=== PATIENT | female | born 1935 | race Two or more races ===

== ENCOUNTER 2016-09-24 14:35 | Outpatient (CLI) | payer MEDICARE, OTHER ==
[2016-09-24 15:26] LABS: BASOPHILS % (AUTO) 0.3 % (0.0-2.0); DIFF TOTAL % 100 %; EOSINOPHILS # (AUTO) 0.4 /CMM (0.0-0.7); EOSINOPHILS % (AUTO) 3.4 % (0.0-6.0); HEMATOCRIT 47 % (33-45); HEMOGLOBIN 14.9 g/dL (11.5-14.8); LYMPHOCYTES % (AUTO) 18.6 % (20.0-44.0); MEAN CORPUSCULAR HEMOGLOBIN 29 PG (26.0-33.0); MEAN CORPUSCULAR HGB CONC 32 g/dl (31.0-36.0); MEAN CORPUSCULAR VOLUME 91 fL (82-100); MONOCYTES # (AUTO) 0.9 /CMM (0.1-1.30); MONOCYTES % (AUTO) 8.6 % (2.0-12.0); NEUTROPHILS # (AUTO) 7.3 /CMM (1.8-8.9); NEUTROPHILS % (AUTO) 69.1 % (43.0-81.0); PLATELET COUNT (AUTO) 245 /CMM (150-450); WHITE BLOOD COUNT (AUTO) 10.5 K/uL (4.3-11.0)
[2016-09-24 15:54] LABS: CALCIUM, SERUM 9.8 mg/dL (8.5-10.1); CREATININE 1.5 mg/dL (0.6-1.3); POTASSIUM 4.6 mmol/L (3.5-5.1)
[2016-09-24 15:55] LABS: ALBUMIN 3.7 g/dL (3.4-5.0); BILIRUBIN,TOTAL 0.9 mg/dL (0.2-1.0); TOTAL PROTEIN, SERUM 8.9 g/dL (6.4-8.2)
[2016-09-24 18:46] LABS: THYROID STIMULATING HORMONE 0.755 uIU/mL (0.358-3.74)
== END 2016-09-24 23:59 | disposition home or self-care (01) ==
LOC: LAB 14:35
PROVIDERS: ATTEND Internal Medicine Cardiovascular Disease
DX: I48.91 Unspecified atrial fibrillation (principal); E03.9 Hypothyroidism, unspecified
CPT/HCPCS: 36415; 80053-TC; 84443-TC; 85025-TC

== ENCOUNTER 2016-11-18 15:02 | Inpatient (IN) | payer MEDICARE, OTHER ==
[~2016-11-18] VITALS: Ht 154.9 cm; Wt 52.2 kg
--- NOTE | 2016-11-18 15:50 | NUR ---
PT BIB SELF FOR FEELING WEAK, COUGH X 6 DAYS. PER PT SHE ONLY ATE OATMEAL TODAY. NAD NOTED. NOTED NON-PRODUCTIVE COUGH. VSS. PT AAOX3. SAFETY AND COMFORT MEASURES PROVIDED. WILL MONITOR.
[2016-11-18] MEDS ORDERED: ALBUTEROL FS 2.5 MG/3 ML VIAL.NEB ONE (15:57)
[2016-11-18] MEDS ORDERED: IPRATROPIUM NEB FS 0.5 MG/2.5 ML AMPUL.NEB ONE (15:57)
[2016-11-18] MEDS ORDERED: IPRATROPIUM NEB FS 0.5 MG/2.5 ML AMPUL.NEB NEB ONE (16:00)
[2016-11-18] MEDS ORDERED: ALBUTEROL FS 2.5 MG/0.5 ML VIAL.NEB NEB ONE (16:00)
--- NOTE | 2016-11-18 16:05 | NUR ---
URINE SAMPLE OBTAINED, SENT.
--- NOTE | 2016-11-18 16:10 | NUR ---
RT AT BS FOR BREATHING TX
--- NOTE | 2016-11-18 16:18 | NUR ---
IV ACCESS STARTED. BLOOD DRAWN FOR LABS.
[2016-11-18 16:19] LABS: BASOPHILS % (AUTO) 0.4 % (0.0-2.0); EOSINOPHILS % (AUTO) 0.5 % (0.0-6.0); HEMATOCRIT 47 % (33-45); HEMOGLOBIN 15.6 g/dL (11.5-14.8); LYMPHOCYTES # (AUTO) 1.1 /CMM (0.8-4.8); MEAN CORPUSCULAR HEMOGLOBIN 30 PG (26.0-33.0); MEAN CORPUSCULAR HGB CONC 33 g/dl (31.0-36.0); MEAN CORPUSCULAR VOLUME 90 fL (82-100); MONOCYTES # (AUTO) 0.5 /CMM (0.1-1.30); MONOCYTES % (AUTO) 10.2 % (2.0-12.0); NEUTROPHILS # (AUTO) 3.4 /CMM (1.8-8.9); NEUTROPHILS % (AUTO) 67.9 % (43.0-81.0); PLATELET COUNT (AUTO) 159 /CMM (150-450); RDW COEFFICIENT OF VARIATION 13.2 (11.5-15.0); RED BLOOD CELL COUNT(AUTO) 5.27 MIL/uL (4.0-5.2)
[2016-11-18 16:22] LABS: APPEARANCE,URINE Turbid (CLEAR); BILIRUBIN,URINE Negative (NEGATIVE); BLOOD, URINE Trace-lysed Ery/uL (NEGATIVE); COLOR,URINE Yellow (YELLOW); KETONES,URINE Negative (NEGATIVE); LEUKOCYTE ESTERASE ,URINE Trace (NEGATIVE); NITRITE, URINE Negative (NEGATIVE); PROTEIN,URINE 30 mg/dl (NEGATIVE); UGLUCOSE Negative (NEGATIVE); UROBILINOGEN,URINE 0.2 EU/dL (0.2)
[2016-11-18 16:31] LABS: CALCIUM, SERUM 9.1 mg/dL (8.5-10.1); CREATININE 2.1 mg/dL (0.6-1.3); POTASSIUM 4.6 mmol/L (3.5-5.1)
[2016-11-18 16:33] LABS: INR 1.42 (0.87-1.13); PROTHROMBIN TIME 15.1 SECS (9.5-12.7)
[2016-11-18 16:36] LABS: ALBUMIN 3.9 g/dL (3.4-5.0); BILIRUBIN,DIRECT 0.3 mg/dL (0.0-0.2); BILIRUBIN,TOTAL 0.7 mg/dL (0.2-1.0)
[2016-11-18 16:39] LABS: TROPONIN I 0.04 ng/mL (0.00-0.056)
[2016-11-18 16:39] LABS: ADD URINE CULTURE NO; BACTERIA,URINE Rare /HPF (None Seen); RBC,URINE 0-2 /HPF (0-2); SQUAMOUS EPITHELIAL CELL,UR Few /HPF (None Seen); URINE AMORPHOUS URATE Moderate /HPF (None Seen); WBC,URINE 0-3 /HPF (0-3)
[2016-11-18] MEDS ORDERED: NITROGLYCERIN PACKET 1 GM PACKET ONE (16:56)
[2016-11-18] MEDS ORDERED: ASPIRIN 81 MG TAB.CHEW ONE (16:56)
--- NOTE | 2016-11-18 16:57 | NUR ---
DR BARRETT ON THE PHONE WITH DR ARITA REGARDING PATIENT ADMISSION.
[2016-11-18] MEDS ORDERED: NITROGLYCERIN PACKET 1 GM PACKET TOP ONE (17:00)
[2016-11-18] MEDS ORDERED: ASPIRIN 81 MG TAB.CHEW PO ONE (17:00)
[2016-11-18] MEDS ORDERED: WARFARIN SODIUM 1 MG TABLET PO SCH ×2 (17:00→21:30)
[2016-11-18 17:01] LABS: LACTIC ACID 1.1 mmol/L (0.4-2.0)
--- NOTE | 2016-11-18 17:51 | NUR ---
REPORT GIVEN TO MASON LOBO NURSE FOR TELE RM 114-2
[2016-11-18] MEDS ORDERED: LEVO50TA8 PO (17:55)
[2016-11-18] MEDS ORDERED: WARF3TAB29 PO (17:55)
[2016-11-18] MEDS ORDERED: ONDANSETRON HCL/PF 4 MG/2 ML VIAL IVP PRN (18:00)
[2016-11-18] MEDS ORDERED: ENOXAPARIN SODIUM 40 MG/0.4 ML DISP.SYRIN SQ SCH (18:00)
[2016-11-18] MEDS ORDERED: Z GUARD REMEDY 2 OZ OINT TP PRN (18:00)
[2016-11-18] MEDS ORDERED: MAGNESIUM HYDROXIDE 30 ML UDC PO PRN (18:00)
[2016-11-18] MEDS ORDERED: MORPHINE SULFATE INJ 2 MG/ML DISP.SYRIN IV PRN (18:00)
[2016-11-18] MEDS ORDERED: MAG HYDROX/AL HYDROX/SIMETH 30 ML UDC PO PRN (18:00)
[2016-11-18] MEDS ORDERED: WARF1TAB6 PO (18:07)
[2016-11-18] MEDS ORDERED: WARF1TAB47 PO (18:07)
[2016-11-18] MEDS ORDERED: METO25TA6 PO (18:07)
[2016-11-18 18:30] VITALS: BP 105/72
[2016-11-18] MEDS: ENOXAPARIN SODIUM 30 MG/0.3 ML DISP.SYRIN SQ SCH (19:23)
--- NOTE | 2016-11-18 19:30 | NUR ---
EDUCATION AND TRAINING COORDINATOR INITIAL NOTES RECEIVED PATIENT AWAKE, A/OX3 EATING DINNER. C/O CHEST PAIN, NON-RADIATING, STATES ITS FROM COUGHING TOO MUCH. NO RESPIRATORY DISTRESS NOTED. DENIES SOB. ON ROOM AIR. ON TELE MONITOR AFIB CONTROLLED 85. SKIN WARM AND DRY TO TOUCH. WITH LAC PATENT AND INTACT. SIDE RAILS UP AND LOCKED. BED KEPT AT LOWEST POSITION. CALL LIGHT KEPT WITHIN EASY REACH. WILL CONTINUE TO MONITOR.
--- NOTE | 2016-11-18 19:32 | NUR ---
RN INITIAL NOTES: Received patient from ER per vane in stable condition, alert and oriented x4, able to make needs known, needs anticipated and attended. Patient instructed to press call light when in need of any assistance, verbalized understanding. On RA saturating well at 96%. With left antecubital G20 SL flushed with NS and patent. On Telemonitoring Sinus rhythm at 90bpm. NO SOB, No LOC, respirations are even and unlabored, no acute distress noted. Kept clean and dry. Provided safety and comfort measures. Bed low and locked position, fall precaution observed. Patient able to ambulate and noted to be steady gait. Dr. Almanzar noted of admission and with orders noted and carried out. Skin assessment done and intact. To continue to monitor accordingly. Addendum: 11/19/16 at 1142 by ANN KEYS RN Amendment: Patient came at 1830hrs on 11/18/16. On telemonitoring noted Atrial Fibrillation at 90bpm, controlled rate.
--- NOTE | 2016-11-18 19:47 | NUR ---
INFORMED DR. ARITA REGARDING PATIENT C/O COUGHING. WITH NEW ORDERS NOTED.
[2016-11-18] MEDS ORDERED: IV SET PRIMARY PUMP SET 1 EA INFUS.SET MC ONE (19:54)
[2016-11-18] MEDS: GUAIFENESIN/CODEINE 10 ML UDC PO PRN (19:55)
[2016-11-18] MEDS: IV NS 0.9% 1,000 ML IV PRN (19:57)
[2016-11-18 20:00] VITALS: BP 142/69
--- NOTE | 2016-11-18 20:50 | NUR ---
INFORMED DR. ARITA TO RECONCILE MEDS. INFORMED DR. ARITA REGARDING PATIENT PT/INR RESULT. PER PATIENT COUMADIN IS TAKEN DAILY M,W,F 3.5MG. ON WEDNESDAY, WEDNESDAY, WEDNESDAY, AND WEDNESDAY 3MG. PER DR. ARITA CONTINUE CURRENT DOSE. INFORMED DR. ARITA PATIENT WAS GIVEN LOVENOX EARLIER. WANTS COUMADIN TO START TODAY.
[2016-11-18] MEDS: METOPROLOL TARTRATE 25 MG TABLET PO SCH (21:02)
[2016-11-18] MEDS: ZOLPIDEM TARTRATE 5 MG TABLET PO PRN (21:02)
[2016-11-18] MEDS ORDERED: WARFARIN SODIUM 2.5 MG TABLET ONE (21:23)
[2016-11-18] MEDS ORDERED: WARFARIN SODIUM 1 MG TABLET ONE (21:23)
[2016-11-18] MEDS ORDERED: ATORVASTATIN 40 MG TABLET PO SCH (22:00)
[2016-11-19] VITALS: BP 112/60
[2016-11-19] MEDS: HYDROCODONE/APAP 5/325MG 1 EACH TABLET PO PRN ×2 (02:44→02:48)
--- NOTE | 2016-11-19 02:48 | NUR ---
PATIENT C/O 02/06 GENERALIZED PAIN. OFFERED NORCO, WILL TAKE IT AT A LATER TIME.
[2016-11-19] MEDS: GUAIFENESIN/CODEINE 10 ML UDC PO PRN ×3 (03:00→20:55)
[2016-11-19 04:00] VITALS: BP 106/59
--- NOTE | 2016-11-19 06:36 | NUR ---
STEEL ESTIMATOR CLOSING NOTES NO SIGNIFICANT CHANGES OVERNIGHT. ALL NEEDS ANTICIPATED AND MET. NO RESPIRATORY DISTRESS NOTED, ON 2LPMO2 VIA NC. SKIN WARM AND DRY TO TOUCH. IVF RUNNINGS. SIDE RAILS UP AND LOCKED. BED KEPT AT LOWEST POSITION. CALL LIGHT KEPT WITHIN EASY REACH. WILL ENDORSE CONTINUITY OF CARE TO AM NURSE.
[2016-11-19 07:12] LABS: BASOPHILS % (AUTO) 0.2 % (0.0-2.0); EOSINOPHILS # (AUTO) 0.1 /CMM (0.0-0.7); EOSINOPHILS % (AUTO) 1.6 % (0.0-6.0); HEMATOCRIT 41 % (33-45); HEMOGLOBIN 13.3 g/dL (11.5-14.8); LYMPHOCYTES # (AUTO) 1.3 /CMM (0.8-4.8); LYMPHOCYTES % (AUTO) 24.6 % (20.0-44.0); MEAN CORPUSCULAR HEMOGLOBIN 29 PG (26.0-33.0); MEAN CORPUSCULAR HGB CONC 32 g/dl (31.0-36.0); MEAN CORPUSCULAR VOLUME 91 fL (82-100); MONOCYTES # (AUTO) 0.6 /CMM (0.1-1.30); MONOCYTES % (AUTO) 11.8 % (2.0-12.0); NEUTROPHILS # (AUTO) 3.3 /CMM (1.8-8.9); NEUTROPHILS % (AUTO) 61.8 % (43.0-81.0); PLATELET COUNT (AUTO) 146 /CMM (150-450); RDW COEFFICIENT OF VARIATION 14.4 (11.5-15.0); RED BLOOD CELL COUNT(AUTO) 4.53 MIL/uL (4.0-5.2); WHITE BLOOD COUNT (AUTO) 5.4 K/uL (4.3-11.0)
--- NOTE | 2016-11-19 07:15 | NUR ---
RN INITIAL NOTES: Rec'd pt asleep on bed, not in any distress, A&O x4, denies chest pain. Pt on O2 at NC 2lpm, no SOB noted. On telemonitor, Afib/Aflutter, HR 70. Has L AC G20 w/ NS at 75 cc/hr, infusing well, patent, C/D/I, no signs of infection of infiltration noted. CL placed w/in reached. Bed kept low & in locked pos. Will continue to monitor.
[2016-11-19 07:29] LABS: CALCIUM, SERUM 8.2 mg/dL (8.5-10.1); MAGNESIUM 1.9 mg/dL (1.8-2.4); PHOSPHORUS 3.6 mg/dL (2.5-4.9); POTASSIUM 4.7 mmol/L (3.5-5.1)
[2016-11-19 08:00] VITALS: BP 90/46
[2016-11-19] MEDS: LEVOTHYROXINE SODIUM 50 MCG TABLET PO SCH ×2 (08:51→09:00)
[2016-11-19] MEDS: PANTOPRAZOLE 40 MG TABLET.DR PO SCH (08:52)
[2016-11-19] MEDS: ASPIRIN 81 MG TAB.CHEW PO SCH (08:55)
[2016-11-19] MEDS: METOPROLOL TARTRATE 25 MG TABLET PO SCH ×2 (08:59→20:56)
[2016-11-19] MEDS ORDERED: LEVOTHYROXINE SODIUM 50 MCG TABLET PO SCH (09:00)
--- NOTE | 2016-11-19 11:50 | NUR ---
RN NOTES: Pt seen & examined by robert Dallas/ orders made & carried out.
--- NOTE | 2016-11-19 11:54 | NUR ---
RN NOTES: Informed CORRECTIONS CORPORAL Nia re: pt's refusal on taking Aspirin PO.
[2016-11-19 12:00] VITALS: BP 95/58
[2016-11-19] MEDS ORDERED: SECONDARY IV SET 1 EA INFUS.SET MC ONE (14:07)
[2016-11-19] MEDS: AZITHROMYCIN 500 MG in IV D5W 250 ML IV SCH (14:13)
--- NOTE | 2016-11-19 14:41 | NUR ---
RN NOTES: Seen & examined by Dr. Garrick jones/ orders made & carried out.
--- NOTE | 2016-11-19 15:01 | NUR ---
RN NOTES: Referred to Dr. Coulter re: ASA that patient refused to take, as per MD not to be discontinued and patient needs to be on ASA, patient made aware, explained risks and benefits, but still refused, respected patient rights.
[2016-11-19] MEDS ORDERED: ALBUTEROL FS 2.5 MG/3 ML VIAL.NEB NEB PRN (15:30)
[2016-11-19] MEDS ORDERED: IPRATROPIUM NEB FS 0.5 MG/2.5 ML AMPUL.NEB NEB PRN (15:30)
[2016-11-19] MEDS: ACETYLCYSTEINE 10% SOLN 400 MG/4 ML VIAL NEB SCH ×2 (15:56→23:45)
[2016-11-19 16:00] VITALS: BP 97/58
[2016-11-19] MEDS: methylPREDNISolone SOD SUCC 40 MG/ML VIAL IV SCH (16:26)
[2016-11-19] MEDS: IV NS 0.9% 1,000 ML IV PRN (16:32)
[2016-11-19] MEDS ORDERED: WARFARIN SODIUM 1 MG TABLET PO SCH ×2 (17:00)
[2016-11-19] MEDS: ENOXAPARIN SODIUM 30 MG/0.3 ML DISP.SYRIN SQ SCH (17:15)
[2016-11-19 17:19] LABS: INR 1.83 (0.87-1.13)
[2016-11-19 17:41] LABS: PROTHROMBIN TIME 20.3 SECS (9.5-12.7)
[2016-11-19] MEDS: WARFARIN SODIUM 1 MG TABLET PO SCH (17:46)
--- NOTE | 2016-11-19 17:46 | NUR ---
RN NOTES: Verified w/ Enriqueta (Pharmacy) re: pt to take Coumadin 3 mg, PO. Pt's PT 20.3, INR 1.83, she said okay to give. Only hold & call MD if INR > 3.5.
--- NOTE | 2016-11-19 18:39 | NUR ---
RN CLOSING NOTES: No acute changes noted w/in shift. Pt A&O x4, not in any distress. Pt on O2 per NC at 2lpm, saturating at 98%. Has L AC G20 IV line w/ NS 1L x 75 cc/hr, infusing well, patent & intact, no signs of infection/ infiltration noted. Kept dry & comfortable. Safety maintained. CL placed w/in reached. Needs attended. Will endorse to PM RN for FACUNDO.
[2016-11-19 20:00] VITALS: BP 100/54
--- NOTE | 2016-11-19 20:00 | NUR ---
MS RN NOTES RECEIVED PT IN BED, A/OX3. FARSI SPEAKING. ON O2 VIA NC AT 2 LPM, WES WELL. BRP WITH ASSIST. IV AT LAC 20G, RUNNING NS AT 75 ML/HR. PT DENIES PAIN AT THIS TIME. HOB ELEVATED, CALL LIGHT WITHIN REACH.
[2016-11-19] MEDS: ALBUTEROL FS 2.5 MG/3 ML VIAL.NEB NEB SCH (20:27)
[2016-11-19] MEDS: IPRATROPIUM NEB FS 0.5 MG/2.5 ML AMPUL.NEB NEB SCH (20:27)
[2016-11-19] MEDS: ZOLPIDEM TARTRATE 5 MG TABLET PO PRN (20:55)
[2016-11-20] MEDS: IPRATROPIUM NEB FS 0.5 MG/2.5 ML AMPUL.NEB NEB SCH ×4 (01:30→21:21)
--- NOTE | 2016-11-20 02:57 | NUR ---
MS RN NOTES SMALL AMOUNT OF URINE NOTED ON PT'S BED PAD INDICATING MINOR INCONTINENCE WHILE PT IS WEARING PANTS. PT REFUSES TO TAKE OFF PANTS AND REFUSES ASSISTANCE IN PERINEAL CARE, INSISTS ON WALKING TO THE BATHROOM TO URINATE AND PERFORM SELF HYGIENE WHILE PRESENTING UNSTABLE GAIT AND STATING DIZZINESS. PT WAS ASSISTED TO TOILET AND BACK TO BED BY RN. PT PERFORMED AN UNSATISFACTORY PERINEAL SELF HYGIENE AND CONTINUES TO WEAR URINE SOAKED PANTS. WILL ENDORSE TO AM RN TO BRING TO PT'S FAMILY'S ATTENTION IN HOPES OF FAMILY CONVINCING PT TO REMOVE PANTS OR TO BRING NEW PANTS. CHILDCARE PROVIDER AWARE.
[2016-11-20 04:00] VITALS: BP 116/59
[2016-11-20] MEDS: ALBUTEROL FS 2.5 MG/3 ML VIAL.NEB NEB SCH ×4 (05:29→21:21)
--- NOTE | 2016-11-20 07:15 | NUR ---
RN INITIAL NOTES RECEIVED PT AWAKE, A/OX4. ON 02 AT 3LPM VIA NC. NO RESPIRATORY DISTRESS NOTED. NO SOB NOTED. DENIES ANY PAIN. LAC G#[address] ON NS AT 75ML/HR. PT CLEAN AND DRY. PT COMFORTABLE. CALL LIGHT WITHIN REACH. WILL MONITOR.
[2016-11-20] MEDS: ACETYLCYSTEINE 10% SOLN 400 MG/4 ML VIAL NEB SCH ×2 (07:46→15:09)
[2016-11-20 08:00] VITALS: BP 128/67
[2016-11-20] MEDS: LEVOTHYROXINE SODIUM 50 MCG TABLET PO SCH (08:08)
[2016-11-20] MEDS: PANTOPRAZOLE 40 MG TABLET.DR PO SCH (08:08)
[2016-11-20] MEDS: METOPROLOL TARTRATE 25 MG TABLET PO SCH ×2 (08:08→20:36)
[2016-11-20] MEDS: ASPIRIN 81 MG TAB.CHEW PO SCH (08:09)
[2016-11-20] MEDS: methylPREDNISolone SOD SUCC 40 MG/ML VIAL IV SCH ×3 (08:09→16:48)
[2016-11-20] MEDS ORDERED: WARFARIN SODIUM 1 MG TABLET PO SCH ×3 (09:00→17:00)
[2016-11-20] MEDS: IV NS 0.9% 1,000 ML IV PRN (09:53)
[2016-11-20] MEDS: AZITHROMYCIN 500 MG in IV D5W 250 ML IV SCH (13:19)
[2016-11-20 15:31] LABS: INR 3.1 (0.87-1.13)
[2016-11-20 15:42] LABS: PROTHROMBIN TIME 35.6 SECS (9.5-12.7)
[2016-11-20 16:00] VITALS: BP 123/76
--- NOTE | 2016-11-20 16:05 | NUR ---
RN NOTES SEEN AND EXAMINED BY DR. NGUYỄN. AWARE OF CURRENT LAB RESULTS. AWARE OF PT/INR. NOTIFIED MD THAT PT IS ON COUMADIN AND LOVENOX. PER MD, HE WILL DC LOVENOX AND WILL ORDER LASIX. AWAITING FOR ORDER. PT AWARE
[2016-11-20] MEDS ORDERED: FUROSEMIDE 20 MG/2 ML VIAL IV ONE (16:30)
--- NOTE | 2016-11-20 17:00 | NUR ---
MS1/CERTIFIED COURT INTERPRETER OF CARE RECEIVED REPORT FROM NURSE CASTILLO, ENDORSED PT TO CONTINUE CARE.
--- NOTE | 2016-11-20 19:27 | NUR ---
MS1/RN AM SHIFT END NOTES NO ACUTE CHANGE OF CONDITION NOTED SINCE PT WAS ENDORSED THIS AFTERNOON TO CONTINUE CARE. WITH ON GOING IV INFUSION OF NS @ 75CC/HR, IV SITE PATENT, NO S/S OF INFECTION. PT ENDORSED TO PM NURSE TO CONTINUE CARE. CL WITHIN REACHED AND SAFETY MAINTAINED.
[2016-11-20 20:00] VITALS: BP 125/61
--- NOTE | 2016-11-20 20:25 | NUR ---
RN- RECEIVED PATIENT LYING ON BED, DENIES CHEST PAINS, AWAKE, ALERT, ORIENTED X3, O2 2LPM VIA NASAL CANNULA, NO SOB, O2 SAT 97%, TEMP 97.6 HR 80 RR 22 BP 125/61, IVNS RUNNING AT 75 MLS/HR, SCD'S ON, FALL PRECAUTION/INSTRUCTED TO CALL FOR ASSISTANCE BEFORE ACTIVITY
[2016-11-20 21:00] VITALS: BP 125/61
--- NOTE | 2016-11-21 00:15 | NUR ---
RN AMBULATED TO BATHROOM WITH ASSISTANCE. VOIDED AND MOVED BOWELS X1
[2016-11-21] MEDS: IV NS 0.9% 1,000 ML IV PRN (01:30)
[2016-11-21] MEDS: ALBUTEROL FS 2.5 MG/3 ML VIAL.NEB NEB SCH ×4 (01:47→21:40)
[2016-11-21] MEDS: ACETYLCYSTEINE 10% SOLN 400 MG/4 ML VIAL NEB SCH ×4 (01:47→23:46)
[2016-11-21] MEDS: IPRATROPIUM NEB FS 0.5 MG/2.5 ML AMPUL.NEB NEB SCH ×4 (01:47→21:39)
[2016-11-21] MEDS: ZOLPIDEM TARTRATE 5 MG TABLET PO PRN ×2 (01:47→21:22)
[2016-11-21 04:00] VITALS: BP 119/63
[2016-11-21 05:00] VITALS: BP 119/63
[2016-11-21 07:05] LABS: BASOPHILS % (AUTO) 0.1 % (0.0-2.0); HEMATOCRIT 37 % (33-45); HEMOGLOBIN 12.2 g/dL (11.5-14.8); LYMPHOCYTES # (AUTO) 0.6 /CMM (0.8-4.8); MEAN CORPUSCULAR HEMOGLOBIN 30 PG (26.0-33.0); MEAN CORPUSCULAR HGB CONC 33 g/dl (31.0-36.0); MEAN CORPUSCULAR VOLUME 90 fL (82-100); MONOCYTES # (AUTO) 0.4 /CMM (0.1-1.30); MONOCYTES % (AUTO) 3.4 % (2.0-12.0); NEUTROPHILS # (AUTO) 10.3 /CMM (1.8-8.9); NEUTROPHILS % (AUTO) 91.5 % (43.0-81.0); PLATELET COUNT (AUTO) 160 /CMM (150-450); RED BLOOD CELL COUNT(AUTO) 4.14 MIL/uL (4.0-5.2); WHITE BLOOD COUNT (AUTO) 11.2 K/uL (4.3-11.0)
--- NOTE | 2016-11-21 07:30 | NUR ---
initial note received patient resting in bed, a+ox3, verbalizes needs. understands simple concepts in Icelandic, otherwise Farsi speaking. denies pain. breathing even and unlabored. states has SOB, denies chest pain. O2 sat WNL with NC 2L. LAC iv is infiltrated, arm mild swollen and tender. not red, not hot to touch. removed IV. will reinsert. discussed plan of care. call light in reach
[2016-11-21 08:00] VITALS: BP 133/64
[2016-11-21 08:18] LABS: CALCIUM, SERUM 8.5 mg/dL (8.5-10.1); CREATININE 1.5 mg/dL (0.6-1.3); POTASSIUM 5.1 mmol/L (3.5-5.1)
[2016-11-21 08:46] LABS: PROTHROMBIN TIME 54.2 SECS (9.5-12.7)
[2016-11-21] MEDS: LEVOTHYROXINE SODIUM 50 MCG TABLET PO SCH (08:50)
[2016-11-21] MEDS: methylPREDNISolone SOD SUCC 40 MG/ML VIAL IV SCH ×3 (08:51→14:33)
[2016-11-21] MEDS: PANTOPRAZOLE 40 MG TABLET.DR PO SCH (08:51)
[2016-11-21] MEDS: ASPIRIN 81 MG TAB.CHEW PO SCH (08:51)
[2016-11-21] MEDS: METOPROLOL TARTRATE 25 MG TABLET PO SCH ×2 (08:51→21:21)
[2016-11-21 08:58] LABS: INR 4.6 (0.87-1.13)
--- NOTE | 2016-11-21 10:21 | NUR ---
Paged Jose Howard NP of patient's INR result. no bleeding noted
--- NOTE | 2016-11-21 12:32 | NUR ---
rn notes attempted IV access 2 times, ICU nurse Rosa attempted 2 times. called ER to attempt, said they were busy. called process supervisor for midline insertion. no solu-medrol or IV fluids infusing since beginning of shift.
[2016-11-21] MEDS: AZITHROMYCIN 500 MG in IV D5W 250 ML IV SCH (14:34)
[2016-11-21] MEDS ORDERED: FUROSEMIDE 20 MG/2 ML VIAL IV ONE (15:00)
[2016-11-21] MEDS: WARFARIN SODIUM 1 MG TABLET PO SCH (16:15)
--- NOTE | 2016-11-21 16:20 | NUR ---
rn note confirmed with doctor anamaria that lasix 60mg iv to be given once and lasix 40mg iv to be given at 1900 routine.
[2016-11-21] MEDS: NITROGLYCERIN 0.4 MG/TAB BOTTLE SL PRN (19:17)
[2016-11-21] MEDS: FUROSEMIDE 40 MG/4 ML VIAL IV SCH (19:25)
--- NOTE | 2016-11-21 19:30 | NUR ---
CLOSING NOTES PATIENT COMPLAINED OF CHEST PAIN AND SOB AT END OF SHIFT. BP 132/60, HR 105, O2 SAT 94%, RR 28, TEMP 98.7. ABLE TO VERBALIZE NEEDS. LOC UNCHANGED. ADMIN NITRO SL AND PATIENT STATED HAVING RELIEF. NIGHT NURSE AND MYSELF PROVIDING INTERVENTIONS. NIGHT NURSE STATED WILL CONTACT MD. CALL LIGHT IN REACH.
[2016-11-21 20:00] VITALS: BP 134/74
[2016-11-21 20:11] LABS: MAGNESIUM 1.6 mg/dL (1.8-2.4); POTASSIUM 5.3 mmol/L (3.5-5.1)
[2016-11-21 20:20] LABS: TROPONIN I 0.032 ng/mL (0.00-0.056)
--- NOTE | 2016-11-21 20:20 | NUR ---
EUFEMIA/SLURRY BLENDER RECEIVED REPORT FROM DAY NURSE, PT APPEARED TO BE A LITTLE SHORTNESS OF BREATH. CHARGE NURSE NOTIFIED AND DAY RN NOTIFIED. 1900 @ RONAL GIVEN, THEN ORDERED STAT EKG, TROP SINCE LAST WAS DONE 11/18 WELL MAG. POTASSIUM WAS HIGH TODAY AT 5.1. THESES WERE ALL RECHECKED. WILL CALL MD WITH RESULTS
[2016-11-21] MEDS ORDERED: Magnesium 1GM/D5W 100ML PREMIX 200 ML IV ONE (21:16)
[2016-11-21] MEDS ORDERED: IV SET PRIMARY PUMP SET 1 EA INFUS.SET MC ONE (21:17)
[2016-11-21] MEDS: Magnesium 1GM/D5W 100ML PREMIX 100 ML IV SCH ×2 (21:20→22:22)
--- NOTE | 2016-11-21 21:30 | NUR ---
EUFEMIA/CARE TRANSITIONS MANAGER CALLED MD/ CARDIO WITH RESULTS OF TEST. EKG SHOWED AFIB 120'S, TROP UNCHANGED FROM 0.032, MAG 1.6, POTASSIUM 5.3. MD GAVE ORDERS TO PLACE PT BACK ON MONITOR ALSO CHANGE STATUS FROM MS TO TELEY. PLACE F/C TO AVOID PT FROM GETTING OUT OF BED, AVOID SOB. REPLACE MAG WITH 2 GMS OF MAG. POTASSIUM LASIX WAS GIVEN. CHARGE AWARE OF ALL NEW ORDERS. WILL MONITOR THIS PT.
--- NOTE | 2016-11-21 22:30 | NUR ---
EUFEMIA/INTERVENTIONAL PHYSICIAN PLACED HAWK CATH, PT TOLERATED THIS WELL. HAWK DRAINED 650CC, POST INSERTION. WILL CONTINUE TO MONITOR THIS PT. ALSO PT WAS GIVEN AMBIEN 5MG FOR SLEEP, PER PT REQUEST FOR SLEEPING PILL. CALL LIGHT WITHIN REACH.
[2016-11-22] VITALS (7 sets, daily range): BP systolic 116–145; BP diastolic 67–84
[2016-11-22] MEDS: IPRATROPIUM NEB FS 0.5 MG/2.5 ML AMPUL.NEB NEB SCH ×4 (01:47→19:20)
[2016-11-22] MEDS: ALBUTEROL FS 2.5 MG/3 ML VIAL.NEB NEB SCH ×4 (01:47→19:20)
[2016-11-22 07:03] LABS: EOSINOPHILS % (AUTO) 0.1 % (0.0-6.0); HEMATOCRIT 40 % (33-45); HEMOGLOBIN 13.1 g/dL (11.5-14.8); LYMPHOCYTES # (AUTO) 0.7 /CMM (0.8-4.8); LYMPHOCYTES % (AUTO) 4.4 % (20.0-44.0); MEAN CORPUSCULAR HEMOGLOBIN 30 PG (26.0-33.0); MEAN CORPUSCULAR HGB CONC 33 g/dl (31.0-36.0); MEAN CORPUSCULAR VOLUME 90 fL (82-100); MONOCYTES # (AUTO) 0.7 /CMM (0.1-1.30); MONOCYTES % (AUTO) 4.7 % (2.0-12.0); NEUTROPHILS # (AUTO) 14.3 /CMM (1.8-8.9); NEUTROPHILS % (AUTO) 90.8 % (43.0-81.0); PLATELET COUNT (AUTO) 182 /CMM (150-450); RDW COEFFICIENT OF VARIATION 14.2 (11.5-15.0); RED BLOOD CELL COUNT(AUTO) 4.44 MIL/uL (4.0-5.2); WHITE BLOOD COUNT (AUTO) 15.7 K/uL (4.3-11.0)
[2016-11-22 07:31] LABS: CALCIUM, SERUM 9.3 mg/dL (8.5-10.1); CREATININE 1.7 mg/dL (0.6-1.3); MAGNESIUM 2.3 mg/dL (1.8-2.4); PHOSPHORUS 2.4 mg/dL (2.5-4.9); POTASSIUM 4.9 mmol/L (3.5-5.1)
[2016-11-22] MEDS: ACETYLCYSTEINE 10% SOLN 400 MG/4 ML VIAL NEB SCH ×2 (07:35→15:30)
[2016-11-22 07:44] LABS: PROTHROMBIN TIME 56.4 SECS (9.5-12.7)
[2016-11-22 08:26] LABS: INR 4.77 (0.87-1.13)
[2016-11-22] MEDS: PANTOPRAZOLE 40 MG TABLET.DR PO SCH (10:02)
[2016-11-22] MEDS: FUROSEMIDE 40 MG/4 ML VIAL IV SCH ×2 (10:03→18:49)
[2016-11-22] MEDS: LEVOTHYROXINE SODIUM 50 MCG TABLET PO SCH (10:03)
[2016-11-22] MEDS: predniSONE 20 MG TABLET PO SCH (10:03)
[2016-11-22] MEDS: METOPROLOL TARTRATE 25 MG TABLET PO SCH ×2 (10:04→20:23)
[2016-11-22] MEDS: ASPIRIN 81 MG TAB.CHEW PO SCH (10:05)
[2016-11-22] MEDS ORDERED: K PHOS NEUTRAL 250 MG TABLET PO ONE (12:00)
[2016-11-22] MEDS: AZITHROMYCIN 500 MG in IV D5W 250 ML IV SCH (14:33)
[2016-11-22] MEDS ORDERED: IV NS 0.9% 250 ML IV ONE (17:14)
[2016-11-22] MEDS ORDERED: IV NS 0.9% 1,000 ML ONE (18:32)
[2016-11-22] MEDS ORDERED: IV SET PRIMARY PUMP SET 1 EA INFUS.SET MC ONE (18:40)
--- NOTE | 2016-11-22 19:05 | NUR ---
HUNG 250 ML SALINE IT WOULDN T SCAN AND I COULDNT CHART IT ITS HUNG ,UNFORMED CHARGE NURSER
[2016-11-22] MEDS: NITROGLYCERIN 0.4 MG/TAB BOTTLE SL PRN (22:21)
--- NOTE | 2016-11-22 22:22 | NUR ---
RN- PT CO L SIDED CHEST PAIN STATES THAT ITS "HEAVY". VS TAKEN 140/71 HR 90'S O2 SAT 96% ON O2 2L/MIN. SUBLINGUAL NITRO GIVEN. WILL REASSESS PAIN IN 5 MIN.
--- NOTE | 2016-11-22 22:27 | NUR ---
RN- PT STATES THAT CP IS BETTER AFTER X 1 DOSE OF NITRO SUBLINGUAL. WILL CONTACT TELESALES MANAGER HOSPITALIST TO UPDATE ON PT'S STATUS.
--- NOTE | 2016-11-22 22:34 | NUR ---
RN- RT AT BEDSIDE FOR EKG.
--- NOTE | 2016-11-22 23:01 | NUR ---
RN- SPOKE WITH MS ADRIANNE AYALA. ORDERED STAT TROPONIN, AND CHANGE TO TELE STATUS
[2016-11-23] VITALS: BP 137/63
[2016-11-23] MEDS: ACETYLCYSTEINE 10% SOLN 400 MG/4 ML VIAL NEB SCH ×4 (00:36→23:54)
[2016-11-23] MEDS: ALBUTEROL FS 2.5 MG/3 ML VIAL.NEB NEB SCH ×4 (00:36→19:14)
[2016-11-23] MEDS: IPRATROPIUM NEB FS 0.5 MG/2.5 ML AMPUL.NEB NEB SCH ×4 (00:36→19:14)
[2016-11-23] MEDS: HYDROCODONE/APAP 5/325MG 1 EACH TABLET PO PRN (03:37)
--- NOTE | 2016-11-23 03:41 | NUR ---
RN- PT CO PAIN IN LOWER BACK AND LEFT LOWER CHEST PAIN /. PT APPEARS RESTLESS. COMFORT MEASURES GIVEN. PRN NORCO 1 TAB GIVEN PO. TOLERATED WELL. WILL MONITOR FOR S/SX OF PAIN.
[2016-11-23 04:00] VITALS: BP 138/79
--- NOTE | 2016-11-23 07:15 | NUR ---
RN INITIAL NOTES: Received patient on bed during rounds, awake, alert and oriented x4, able to make needs known, needs anticipated and attended. With LUANNE midline flushed with NS and patent SL on TKO. HOB elevated, aspiration precaution observed. On Palacios catheter in placed, draining well to yellow urine, no sediments, no hematuria, no foul odor noted. NO SOB, No LOC, respirations are even and unlabored, no acute distress noted. Kept clean and dry. Provided safety and comfort measures. Bed low and locked position, fall precaution observed. No active bleeding noted. To continue to monitor accordingly.
[2016-11-23 07:40] LABS: INR 3.36 (0.87-1.13); PROTHROMBIN TIME 38.9 SECS (9.5-12.7)
[2016-11-23 07:44] LABS: HEMATOCRIT 40 % (33-45); HEMOGLOBIN 13.1 g/dL (11.5-14.8); LYMPHOCYTES # (AUTO) 1.3 /CMM (0.8-4.8); LYMPHOCYTES % (AUTO) 11.3 % (20.0-44.0); MEAN CORPUSCULAR HEMOGLOBIN 30 PG (26.0-33.0); MEAN CORPUSCULAR HGB CONC 33 g/dl (31.0-36.0); MEAN CORPUSCULAR VOLUME 90 fL (82-100); MONOCYTES # (AUTO) 1.1 /CMM (0.1-1.30); MONOCYTES % (AUTO) 9.3 % (2.0-12.0); NEUTROPHILS # (AUTO) 9.5 /CMM (1.8-8.9); NEUTROPHILS % (AUTO) 79.4 % (43.0-81.0); PLATELET COUNT (AUTO) 213 /CMM (150-450); RED BLOOD CELL COUNT(AUTO) 4.42 MIL/uL (4.0-5.2); WHITE BLOOD COUNT (AUTO) 11.9 K/uL (4.3-11.0)
[2016-11-23 07:55] LABS: CREATININE 1.7 mg/dL (0.6-1.3); PHOSPHORUS 2.9 mg/dL (2.5-4.9); POTASSIUM 4.3 mmol/L (3.5-5.1)
[2016-11-23 08:00] VITALS: BP 118/69
[2016-11-23] MEDS: ASPIRIN 81 MG TAB.CHEW PO SCH (08:22)
[2016-11-23] MEDS: FUROSEMIDE 40 MG/4 ML VIAL IV SCH ×2 (08:22→17:28)
[2016-11-23] MEDS: PANTOPRAZOLE 40 MG TABLET.DR PO SCH (08:22)
[2016-11-23] MEDS: predniSONE 20 MG TABLET PO SCH (08:23)
[2016-11-23] MEDS: METOPROLOL TARTRATE 25 MG TABLET PO SCH ×2 (08:23→21:03)
[2016-11-23] MEDS: LEVOTHYROXINE SODIUM 50 MCG TABLET PO SCH (08:23)
--- NOTE | 2016-11-23 10:09 | NUR ---
RN NOTES: Dr. Urena noted INR result today and ordered for Coumadin 2.5mgs at 5pm and ok to give with INR 3.36.
[2016-11-23 12:00] VITALS: BP 130/68
[2016-11-23] MEDS: AZITHROMYCIN 500 MG in IV D5W 250 ML IV SCH (14:38)
[2016-11-23 16:00] VITALS: BP 130/82
[2016-11-23] MEDS: WARFARIN SODIUM 2.5 MG TABLET PO SCH (17:30)
[2016-11-23] MEDS ORDERED: POLYVINYL ALCOHOL 15 ML BOTTLE EACHEYE PRN (18:00)
[2016-11-23] MEDS: DOCUSATE SODIUM 100 MG CAPSULE PO SCH (18:24)
--- NOTE | 2016-11-23 18:54 | NUR ---
RN NOTES: Patient remain stable within shift, no signs and symptoms of distress noted. Provided safety and comfort. Call lights placed within reached. To endorsed to next shift for continuity of care.
[2016-11-23 20:00] VITALS: BP 131/74
[2016-11-23] MEDS: ZOLPIDEM TARTRATE 5 MG TABLET PO PRN (21:36)
[2016-11-24] VITALS: BP 127/71
[2016-11-24] MEDS: ALBUTEROL FS 2.5 MG/3 ML VIAL.NEB NEB SCH ×4 (01:46→19:36)
[2016-11-24] MEDS: IPRATROPIUM NEB FS 0.5 MG/2.5 ML AMPUL.NEB NEB SCH ×4 (01:46→19:36)
[2016-11-24] MEDS: ACETAMINOPHEN 325 MG TABLET PO PRN (03:11)
[2016-11-24 04:00] VITALS: BP 106/37
--- NOTE | 2016-11-24 06:50 | NUR ---
ASSISTANT PRESSMAN - REC'D PT. SITTING UP IN BED, TALKING W/HER SON-DWIGHT AT BS. 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 PT. REFUSED BEDBATH LAST NIGHT, BECAUSE SHE STATED THAT WE "GAVE HER A COLD" WHENEVER WE BATHED HER 2 NOC'S AGO. PT. HAD A VELOZ AT 3 AM & WAS ADM. TYLENOL 650MG/PO FOR COMFORT. PT. ALSO WAS ADMINISTERED AN AMBIEN AT 21:37 PM LAST NIGHT PER PT'S REQUEST. PT.DID SLEEP FOR MOST PART OF THE NOC. CONT. POC. NO DISTRESS NOR DISCOMFORT AT PRESENT. VSS. CONT. POC.
[2016-11-24 07:31] LABS: BASOPHILS % (AUTO) 0.1 % (0.0-2.0); EOSINOPHILS % (AUTO) 0.2 % (0.0-6.0); HEMATOCRIT 43 % (33-45); HEMOGLOBIN 14.1 g/dL (11.5-14.8); LYMPHOCYTES # (AUTO) 1.6 /CMM (0.8-4.8); LYMPHOCYTES % (AUTO) 12.5 % (20.0-44.0); MEAN CORPUSCULAR HEMOGLOBIN 29 PG (26.0-33.0); MEAN CORPUSCULAR HGB CONC 32 g/dl (31.0-36.0); MEAN CORPUSCULAR VOLUME 91 fL (82-100); MONOCYTES # (AUTO) 1.2 /CMM (0.1-1.30); MONOCYTES % (AUTO) 9.3 % (2.0-12.0); NEUTROPHILS # (AUTO) 9.7 /CMM (1.8-8.9); NEUTROPHILS % (AUTO) 77.9 % (43.0-81.0); PLATELET COUNT (AUTO) 234 /CMM (150-450); RDW COEFFICIENT OF VARIATION 13.9 (11.5-15.0); RED BLOOD CELL COUNT(AUTO) 4.78 MIL/uL (4.0-5.2); WHITE BLOOD COUNT (AUTO) 12.5 K/uL (4.3-11.0)
[2016-11-24 07:35] LABS: INR 3.25 (0.87-1.13); PROTHROMBIN TIME 37.5 SECS (9.5-12.7)
[2016-11-24 07:44] LABS: CALCIUM, SERUM 9.4 mg/dL (8.5-10.1); CREATININE 1.7 mg/dL (0.6-1.3); POTASSIUM 4.3 mmol/L (3.5-5.1)
[2016-11-24 08:00] VITALS: BP 131/75
[2016-11-24] MEDS: DOCUSATE SODIUM 100 MG CAPSULE PO SCH (08:14)
[2016-11-24] MEDS: PANTOPRAZOLE 40 MG TABLET.DR PO SCH (08:14)
[2016-11-24] MEDS: ASPIRIN 81 MG TAB.CHEW PO SCH (08:14)
[2016-11-24] MEDS: FUROSEMIDE 40 MG/4 ML VIAL IV SCH (08:14)
[2016-11-24] MEDS: LEVOTHYROXINE SODIUM 50 MCG TABLET PO SCH (08:15)
[2016-11-24] MEDS: predniSONE 20 MG TABLET PO SCH (08:15)
[2016-11-24] MEDS: METOPROLOL TARTRATE 25 MG TABLET PO SCH ×2 (08:15→21:49)
[2016-11-24] MEDS: ACETYLCYSTEINE 10% SOLN 400 MG/4 ML VIAL NEB SCH ×3 (08:30→23:00)
--- NOTE | 2016-11-24 09:54 | NUR ---
RN INITIAL NOTES: Received patient on bed during rounds, awake, alert and oriented x3-4, able to make needs known, call lights placed within reached, instructed patient to press call light when in need any assistance, needs anticipated and attended. With LUANNE midline flushed with NS and patent SL. HOB elevated, aspiration precaution observed. On Palacios catheter in placed, draining well to yellow urine, no sediments, no hematuria, no foul odor noted. NO SOB, No LOC, respirations are even and unlabored, no acute distress noted. Kept clean and dry. Provided safety and comfort measures. Bed low and locked position, fall precaution observed. No active bleeding noted. To continue to monitor accordingly.
[2016-11-24 12:00] VITALS: BP 134/77
--- NOTE | 2016-11-24 12:48 | NUR ---
RN NOTES: Seen and examined by Dr. Stiles today with orders noted and carried out. Fleet Enema not administered as patient able to have Large bowel movement and felt better.
[2016-11-24] MEDS ORDERED: IV SET PRIMARY PUMP SET 1 EA INFUS.SET MC ONE (13:31)
[2016-11-24] MEDS: AZITHROMYCIN 500 MG in IV D5W 250 ML IV SCH (13:36)
[2016-11-24] MEDS: GUAIFENESIN/CODEINE 10 ML UDC PO PRN (13:36)
[2016-11-24 16:00] VITALS: BP 125/66
[2016-11-24] MEDS: WARFARIN SODIUM 2.5 MG TABLET PO SCH (17:10)
[2016-11-24] MEDS: FUROSEMIDE 20 MG TABLET PO SCH (17:10)
--- NOTE | 2016-11-24 18:49 | NUR ---
RN NOTES: Patient remained stable within shift, no signs and symptoms of distress noted. Labs in am Made comfortable in bed. provided safety and comfort. On telemonitoring Atrial Fibrillation at 97bpm. To endorsed to next shift for continuity of care.
--- NOTE | 2016-11-24 19:40 | NUR ---
PLASTERER MAINTENANCE NOTE PT IN BED SEMIFOWLER, A/O X 3, FARSI SPEAKING. NO SOB, NO DISTRESS OR DISCOMFORT NOTED. DENIES PAIN. RUE WITH MIDLINE INTACT AND PATENT. FLUSHED WITH NS. ON TELE A FIB CONTROLLED HR 99WITH ELEVATED T WAVE HR 99. REMAIN ON O2 2L VIA N/C. F/C INTACT AND PATENT DRAINING YELLOWISH COLOR URINE. FAMILY AT BED SIDE. SIDE RAILS UP X 2 AND CALL LIGHT WITHIN REACH. VSS. CONTINUE TO MONITOR HER.
[2016-11-24 20:00] VITALS: BP 131/65
--- NOTE | 2016-11-24 23:00 | NUR ---
STAFF DEVELOPMENT MANAGER NOTE NOTED PT F/C BAG IS LEAKING, CHANGED WITH NEW BAG. PT TOLERATED THE PROCEDURE WELL.
[2016-11-25] VITALS: BP 154/80
[2016-11-25] MEDS: ZOLPIDEM TARTRATE 5 MG TABLET PO PRN ×2 (00:57→21:15)
--- NOTE | 2016-11-25 00:57 | NUR ---
PUMPER GAUGER APPRENTICE NOTE PT UNABLE TO SLEEP, AMBIEN 5 MG PO GIVEN. AT HER BED SIDE.
[2016-11-25] MEDS: ALBUTEROL FS 2.5 MG/3 ML VIAL.NEB NEB SCH ×5 (00:59→19:55)
[2016-11-25] MEDS: IPRATROPIUM NEB FS 0.5 MG/2.5 ML AMPUL.NEB NEB SCH ×5 (00:59→19:55)
[2016-11-25 04:00] VITALS: BP 160/70
[2016-11-25] MEDS ORDERED: hydrALAZINE HCL 10 MG TABLET ONE (04:45)
--- NOTE | 2016-11-25 04:53 | NUR ---
AND RESCUE FIRE FIGHTER CRASH FIRE NOTE DR GASTON INFORMED PT BP WENT UP 169/70 MD GAVE NEW ORDER, ORDER NOTED AND CARRIED OUT. HYDRALAZINE 10 MG PO GIVEN. CONTINUE TO MONITOR HER.
[2016-11-25] MEDS ORDERED: hydrALAZINE HCL 10 MG TABLET PO PRN (05:00)
[2016-11-25 06:00] VITALS: BP 123/70
--- NOTE | 2016-11-25 06:00 | NUR ---
MANAGER CULTURE NOTE BP CAME DOWN TO 123/70. PT IN NO DISTRESS OR DISCOMFORT NOTED.
--- NOTE | 2016-11-25 06:43 | NUR ---
TANK SHOP SUPERVISOR NOTE PT IN BED ASLEEP, EASILY AROUSABLE. NO DISTRESS OR DISCOMFORT NOTED. DENIES PAIN. LUANNE MID LINE INTACT AND PATENT. NO S/S OF INFILTRATION NOTED. ON TELE A FIB CONTROLLED HR 77. F/C INTACT AND PATENT DRAINING YELLOWISH COLOR URINE. SIDE RAILS UP X 2 AND CALL LIGHT WITHIN REACH. WILL ENDORSE TO DAY SHIFT NURSE FOR CONTINUE TO CARE.
[2016-11-25 07:10] LABS: BASOPHILS % (AUTO) 0.2 % (0.0-2.0); EOSINOPHILS % (AUTO) 0.3 % (0.0-6.0); HEMATOCRIT 41 % (33-45); HEMOGLOBIN 13.6 g/dL (11.5-14.8); LYMPHOCYTES # (AUTO) 2.1 /CMM (0.8-4.8); LYMPHOCYTES % (AUTO) 16.7 % (20.0-44.0); MEAN CORPUSCULAR HEMOGLOBIN 30 PG (26.0-33.0); MEAN CORPUSCULAR HGB CONC 33 g/dl (31.0-36.0); MEAN CORPUSCULAR VOLUME 90 fL (82-100); MONOCYTES % (AUTO) 8.3 % (2.0-12.0); NEUTROPHILS # (AUTO) 9.4 /CMM (1.8-8.9); NEUTROPHILS % (AUTO) 74.5 % (43.0-81.0); PLATELET COUNT (AUTO) 253 /CMM (150-450); RDW COEFFICIENT OF VARIATION 13.7 (11.5-15.0); RED BLOOD CELL COUNT(AUTO) 4.59 MIL/uL (4.0-5.2); WHITE BLOOD COUNT (AUTO) 12.7 K/uL (4.3-11.0)
--- NOTE | 2016-11-25 07:20 | NUR ---
RN INITIAL NOTES: Rec'd pt asleep on bed, A&Ox3, not in any distress. Pt's PT 48.2 & INR 4.[address] Meyers, awaiting for orders. On telemonitor, Afib controlled w/ HR 90. Has LUANNE midline, flushed, patent & intact w/ no signs of infection/ infiltration noted. Pt has FC patent & intact draining to adequate yellow urine output. Provided comfort & safety measures. CL placed w/in reached. Bed kept low in locked position. Will continue to monitor.
[2016-11-25 07:31] LABS: PROTHROMBIN TIME 48.2 SECS (9.5-12.7)
[2016-11-25 07:42] LABS: INR 4.12 (0.87-1.13)
[2016-11-25 08:00] VITALS: BP 108/66
[2016-11-25 08:01] LABS: CALCIUM, SERUM 9.4 mg/dL (8.5-10.1); CREATININE 1.6 mg/dL (0.6-1.3); POTASSIUM 4.6 mmol/L (3.5-5.1)
[2016-11-25] MEDS: DOCUSATE SODIUM 100 MG CAPSULE PO SCH (08:03)
[2016-11-25] MEDS: PANTOPRAZOLE 40 MG TABLET.DR PO SCH (08:03)
[2016-11-25] MEDS: LEVOTHYROXINE SODIUM 50 MCG TABLET PO SCH (08:04)
[2016-11-25] MEDS: predniSONE 20 MG TABLET PO SCH (08:04)
[2016-11-25] MEDS: FUROSEMIDE 20 MG TABLET PO SCH (08:04)
[2016-11-25 08:38] LABS: PHOSPHORUS 3.3 mg/dL (2.5-4.9)
[2016-11-25] MEDS: ACETYLCYSTEINE 10% SOLN 400 MG/4 ML VIAL NEB SCH ×3 (08:38→23:04)
--- NOTE | 2016-11-25 09:30 | NUR ---
RN NOTES: Dr. Stiles informed of pt's INR & PT w/ orders, to HOLD Coumadin today, give ASA as scheduled, & do INR sidney AM.
[2016-11-25] MEDS: METOPROLOL TARTRATE 25 MG TABLET PO SCH ×2 (09:43→21:12)
[2016-11-25] MEDS: ASPIRIN 81 MG TAB.CHEW PO SCH (11:20)
--- NOTE | 2016-11-25 12:30 | NUR ---
RN NOTES: Pt tolerated well today's physical therapy. No distress noted.
[2016-11-25] MEDS: AZITHROMYCIN 500 MG in IV D5W 250 ML IV SCH (14:11)
[2016-11-25 16:00] VITALS: BP 116/71
--- NOTE | 2016-11-25 19:19 | NUR ---
RN CLOSING NOTES: No acute changes noted w/in shift. Pt A&O x3, not in any distress, denies chest pain. Pt's LUANNE midline, flushed, patent & intact w/ no signs of infection/ infiltration noted. Pt FC removed as ordered. Instructed to call RN if wanted to urinate for assistance. Verbalized understanding. Needs attended. Provided comfort & safety measures. CL placed w/in reached. Bed kept low in locked position. Endorsed to PM RN for FACUNDO.
--- NOTE | 2016-11-25 19:30 | NUR ---
MS RN INITIAL NOTE RECEIVED PT IN BED, A/O X2-3 AND ABLE TO MAKE NEEDS KNOWN. ON 2L OF O2 VIA NASAL CANNULA AND SATING WELL. NO RESPIRATORY DISTRESS NOTED AT THIS TIME. IV ALIRIO MIDLINE FLUSHING WELL, PATENT, CLEAN AND INTACT. ALL SAFETY MEASURES IN PLACE AT ALL TIMES. CALL LIGHT WITHIN REACH. WILL CONTINUE TO MONITOR.
[2016-11-25 20:00] VITALS: BP 150/72
[2016-11-26] MEDS: IPRATROPIUM NEB FS 0.5 MG/2.5 ML AMPUL.NEB NEB SCH ×3 (01:43→14:52)
[2016-11-26] MEDS: ALBUTEROL FS 2.5 MG/3 ML VIAL.NEB NEB SCH ×3 (01:43→14:52)
[2016-11-26 04:00] VITALS: BP 122/85
--- NOTE | 2016-11-26 05:45 | NUR ---
MS RN NOTE PER PT REQUESTING BREATHING TREATMENT NOW. SPOKE WITH TERRITORY DEVELOPMENT MANAGER DR. GASTON WITH NEW ORDER OF ONE TIME DOSE OF ATROVENT 0.5MG NEB/ ALBUTEROL 1.25MG NEB NOW. ORDERS READ BACK. ORDERS NOTED AND CARRIED OUT. WILL CONTINUE TO MONITOR.
[2016-11-26] MEDS ORDERED: ALBUTEROL FS 2.5 MG/3 ML VIAL.NEB ONE (05:57)
[2016-11-26] MEDS ORDERED: IPRATROPIUM NEB FS 0.5 MG/2.5 ML AMPUL.NEB ONE (05:57)
[2016-11-26] MEDS ORDERED: ALBUTEROL FS 2.5 MG/3 ML VIAL.NEB NEB ONE (06:00)
[2016-11-26] MEDS ORDERED: IPRATROPIUM NEB FS 0.5 MG/2.5 ML AMPUL.NEB NEB ONE (06:00)
--- NOTE | 2016-11-26 06:30 | NUR ---
MS RN CLOSING NOTE PT IN NO ACUTE DISTRESS AT THIS TIME. ON 2L OF O2 AND SATING WELL. ALL SAFETY MEASURES IN PLACE. CALL LIGHT WITHIN REACH AT ALL TIMES.WILL ENDORSE TO NEXT SHIFT FOR FACUNDO.
[2016-11-26 06:42] LABS: BASOPHILS % (AUTO) 0.1 % (0.0-2.0); EOSINOPHILS % (AUTO) 0.4 % (0.0-6.0); HEMATOCRIT 41 % (33-45); HEMOGLOBIN 13.5 g/dL (11.5-14.8); LYMPHOCYTES % (AUTO) 14.9 % (20.0-44.0); MEAN CORPUSCULAR HEMOGLOBIN 30 PG (26.0-33.0); MEAN CORPUSCULAR HGB CONC 33 g/dl (31.0-36.0); MEAN CORPUSCULAR VOLUME 89 fL (82-100); MONOCYTES # (AUTO) 1.2 /CMM (0.1-1.30); MONOCYTES % (AUTO) 8.9 % (2.0-12.0); NEUTROPHILS # (AUTO) 10.4 /CMM (1.8-8.9); NEUTROPHILS % (AUTO) 75.7 % (43.0-81.0); PLATELET COUNT (AUTO) 283 /CMM (150-450); RDW COEFFICIENT OF VARIATION 13.2 (11.5-15.0); RED BLOOD CELL COUNT(AUTO) 4.55 MIL/uL (4.0-5.2); WHITE BLOOD COUNT (AUTO) 13.8 K/uL (4.3-11.0)
[2016-11-26 06:51] LABS: INR 3.13 (0.87-1.13)
[2016-11-26] MEDS: ACETAMINOPHEN 325 MG TABLET PO PRN (06:51)
[2016-11-26] MEDS: PANTOPRAZOLE 40 MG TABLET.DR PO SCH (06:53)
[2016-11-26 07:01] LABS: CALCIUM, SERUM 9.4 mg/dL (8.5-10.1); CREATININE 1.5 mg/dL (0.6-1.3); MAGNESIUM 1.9 mg/dL (1.8-2.4); PHOSPHORUS 3.9 mg/dL (2.5-4.9); POTASSIUM 4.7 mmol/L (3.5-5.1)
--- NOTE | 2016-11-26 07:20 | NUR ---
RN INITIAL NOTES: Rec'd pt awake on bed, AxO x2-3, with c/o weakness, denies chest pain or SOB at this time. Pt has LUANNE midline, flushed, patent & intact w/ no signs of infection/ infiltration noted. Kept clean, dry, & comfortable. Call light placed w/in reached. Bed kept low & in locked position. Instructed to notify RN or CREDIT ADMINISTRATION OFFICER if needs assistance to go to the bathroom. Verbalized understanding. Fall precaution observed. Will continue to monitor.
[2016-11-26] MEDS: ACETYLCYSTEINE 10% SOLN 400 MG/4 ML VIAL NEB SCH ×2 (07:34→14:52)
[2016-11-26 08:00] VITALS: BP 114/54
[2016-11-26] MEDS: LEVOTHYROXINE SODIUM 50 MCG TABLET PO SCH (08:44)
[2016-11-26] MEDS: DOCUSATE SODIUM 100 MG CAPSULE PO SCH (08:45)
[2016-11-26] MEDS: ASPIRIN 81 MG TAB.CHEW PO SCH (08:45)
[2016-11-26] MEDS: predniSONE 20 MG TABLET PO SCH (08:46)
[2016-11-26] MEDS: METOPROLOL TARTRATE 25 MG TABLET PO SCH (08:46)
[2016-11-26] MEDS ORDERED: FUROSEMIDE 20 MG TABLET PO SCH (09:00)
[2016-11-26] MEDS ORDERED: AZITHROMYCIN 250 MG TABLET PO SCH (11:30)
--- NOTE | 2016-11-26 11:37 | NUR ---
RN NOTES: Pt seen & examined by Dr. Stiles w/ orders made & carried out.
[2016-11-26] MEDS ORDERED: Hydralazine Hcl PO (11:40)
[2016-11-26] MEDS ORDERED: PANT40TA2 PO (11:40)
[2016-11-26] MEDS ORDERED: Ipratropium Bromide NEB (11:40)
[2016-11-26] MEDS ORDERED: ONCOUMADIN PO (11:40)
[2016-11-26] MEDS ORDERED: FURO20TA4 PO (11:40)
[2016-11-26] MEDS ORDERED: ALBUT2 NEB (11:40)
[2016-11-26] MEDS ORDERED: ASPI81TA2 PO (11:40)
[2016-11-26] MEDS ORDERED: GUAI10SY3 PO (11:46)
[2016-11-26] MEDS ORDERED: DOCU-25 PO (11:46)
[2016-11-26] MEDS ORDERED: PRED20TA GT (11:46)
[2016-11-26] MEDS ORDERED: PRED10TA PO (11:46)
[2016-11-26] MEDS: AZITHROMYCIN 500 MG in IV D5W 250 ML IV SCH (15:33)
[2016-11-26 16:00] VITALS: BP 114/63
--- NOTE | 2016-11-26 16:45 | NUR ---
RN NOTES: Rec'd call from LUBNA Segundo of [facility], gave report to her regarding pt status.
[2016-11-26] MEDS ORDERED: WARFARIN SODIUM 2.5 MG TABLET PO SCH (17:00)
--- NOTE | 2016-11-26 17:00 | NUR ---
RN NOTES: Rec'd call from Cristiano ESCUDERO pt is for DC to [facility] (phone # [phone]), pickling tank operator time via ambulance at 6PM. LVMM to Williams (son) regarding DC.
--- NOTE | 2016-11-26 18:30 | NUR ---
RN DISCHARGING NOTES: Gave report to EMT. All DC paper works prepared c/o TROY Chery. Pt in stable condition, not in any distress, denies chest pain. On NC at 2lpm, saturating at 98%. As per LUBNA Segundo ([facility]) keep IV site LUANNE midline. LUANNE midline, patent, C/D/I, no signs of infection/ infiltration noted. Belongings checked c/o CARMEN Huizar & all given to the pt's relative. Left VM to Williams (son) twice regarding the DC.
== END 2016-11-26 21:07 | DRG 193 ==
LOC: ER 15:07 → TELE1 16:56 → MEDSG1 11-19 17:19 → TELE1 11-21 21:07 → MEDSG1 11-22 14:37 → TELE1 11-22 23:30 → MEDSG1 11-25 10:57
PROVIDERS: ADMIT Internal Medicine; ATTEND Internal Medicine
PROC: 05H533Z Insertion of Infusion Device into Right Subclavian Vein, Percutaneous Approach (ICD-10-PCS; principal; 2016-11-21)
DX: J15.9 Unspecified bacterial pneumonia (principal); N17.0 Acute kidney failure with tubular necrosis; I50.33 Acute on chronic diastolic (congestive) heart failure; J44.1 Chronic obstructive pulmonary disease with (acute) exacerbation; I13.0 Hypertensive heart and chronic kidney disease with heart failure and stage 1 through stage 4 chronic kidney disease, or unspecified chronic kidney disease; D68.59 Other primary thrombophilia; Z79.01 Long term (current) use of anticoagulants; E86.0 Dehydration; I48.0 Paroxysmal atrial fibrillation; N18.3 Chronic kidney disease, stage 3 (moderate); E78.5 Hyperlipidemia, unspecified; E03.9 Hypothyroidism, unspecified; K21.9 Gastro-esophageal reflux disease without esophagitis; M19.90 Unspecified osteoarthritis, unspecified site; Z95.1 Presence of aortocoronary bypass graft; Z95.2 Presence of prosthetic heart valve; J06.9 Acute upper respiratory infection, unspecified; K59.00 Constipation, unspecified; I09.9 Rheumatic heart disease, unspecified; J98.01 Acute bronchospasm; R07.89 Other chest pain
CPT/HCPCS: 36415; 36569; 70220-TC; 71010-TC; 71250-TC; 80048-TC; 80061-TC; 80076-TC; 81000-TC; 83605-TC; 83735-TC; 84100-TC; 84132-TC; 84484-TC; 85025-TC; 85610-TC; 85730-TC; 87040-TC; 87081-TC; 93307-TC; 94799-TC; 97001-TC; 97116-TC; 97530-TC; A4606; J0456; J1650; J1940; J2920; J3475; J7030; J7050; J7060; Z7610

== ENCOUNTER 2016-11-28 13:05 | Inpatient (IN) | payer MEDICARE, OTHER ==
[~2016-11-28] VITALS: Ht 152.4 cm; Wt 55.3 kg
[2016-11-28] MEDS: IPRATROPIUM NEB FS 0.5 MG/2.5 ML AMPUL.NEB IH SCH (01:04)
[2016-11-28] MEDS: ALBUTEROL HALF STRENGTH 1.25 MG/3 ML VIAL.NEB IH SCH (01:05)
[~2016-11-28 13:05] MED LIST: ALBUT2 NEB; ASPI81TA2 PO; DOCU-25 PO; FURO20TA4 PO; GUAI10SY3 PO; Hydralazine Hcl PO; Ipratropium Bromide NEB; LEVO50TA8 PO; METO25TA6 PO; ONCOUMADIN PO; PANT40TA2 PO; PRED10TA PO; PRED20TA GT
--- NOTE | 2016-11-28 13:10 | NUR ---
BIB EMT FROM [facility] FOR ABNORMAL LABS(BUN/CEA=51/1.72,SODIUM 132. NOTED GENERALIZED WEAKNESS. VSS. LUANNE MIDLINE ESTIMATOR PRINTING. MD AT BS FOR EVAL. SAFETY AND COMFORT MEASURES PROVIDED. WILL MONITOR.
[2016-11-28] MEDS ORDERED: IV SET PRIMARY PUMP SET 1 EA INFUS.SET MC ONE (13:17)
[2016-11-28] MEDS ORDERED: IV NS 0.9% 1,000 ML ONE (13:17)
--- NOTE | 2016-11-28 13:20 | NUR ---
FRONT END WEB DESIGNER AT FOR BLOOD DRAW.
[2016-11-28] MEDS ORDERED: IV NS 0.9% 1,000 ML BAG IV ONE ×2 (13:30)
[2016-11-28] MEDS ORDERED: ALBU1.257 IH (13:31)
[2016-11-28] MEDS ORDERED: IPRA0.2S9 IH (13:31)
[2016-11-28] MEDS ORDERED: ACET1OOV6 HHN (13:31)
[2016-11-28] MEDS ORDERED: ACET-868 PO (13:31)
[2016-11-28] MEDS ORDERED: PRED20TA PO (13:31)
[2016-11-28] MEDS ORDERED: HYDR-3326 PO (13:31)
[2016-11-28] MEDS ORDERED: PANT40TA4 PO (13:31)
[2016-11-28] MEDS ORDERED: GUAI10SY3 PO (13:31)
[2016-11-28] MEDS ORDERED: ASPI-991 PO (13:31)
[2016-11-28] MEDS ORDERED: WARF2TAB6 PO (13:31)
[2016-11-28] MEDS ORDERED: FURO20TA4 PO (13:31)
[2016-11-28] MEDS ORDERED: HYDR-4075 PO (13:31)
[2016-11-28] MEDS ORDERED: ZOLP5TAB2 PO (13:31)
[2016-11-28] MEDS ORDERED: POLY15DR57 EACHEYE (13:31)
--- NOTE | 2016-11-28 13:31 | NUR ---
PT MEDICATED ORDERED.
--- NOTE | 2016-11-28 13:33 | NUR ---
CALLED NURSING SUP. FOR TELE BED
--- NOTE | 2016-11-28 13:35 | NUR ---
XRAY DONE AT BS.
[2016-11-28 13:36] LABS: BASOPHILS # (AUTO) 0.2 /CMM (0.0-0.2); BASOPHILS % (AUTO) 1.3 % (0.0-2.0); EOSINOPHILS % (AUTO) 0.2 % (0.0-6.0); HEMATOCRIT 41 % (33-45); HEMOGLOBIN 13.5 g/dL (11.5-14.8); LYMPHOCYTES # (AUTO) 0.8 /CMM (0.8-4.8); LYMPHOCYTES % (AUTO) 4.6 % (20.0-44.0); MEAN CORPUSCULAR HEMOGLOBIN 30 PG (26.0-33.0); MEAN CORPUSCULAR HGB CONC 33 g/dl (31.0-36.0); MEAN CORPUSCULAR VOLUME 90 fL (82-100); MONOCYTES # (AUTO) 0.5 /CMM (0.1-1.30); MONOCYTES % (AUTO) 2.6 % (2.0-12.0); NEUTROPHILS # (AUTO) 15.9 /CMM (1.8-8.9); NEUTROPHILS % (AUTO) 91.3 % (43.0-81.0); PLATELET COUNT (AUTO) 347 /CMM (150-450); RDW COEFFICIENT OF VARIATION 13.4 (11.5-15.0); RED BLOOD CELL COUNT(AUTO) 4.57 MIL/uL (4.0-5.2); WHITE BLOOD COUNT (AUTO) 17.4 K/uL (4.3-11.0)
--- NOTE | 2016-11-28 13:50 | NUR ---
PT'S SON NAME MALIK WITH NUMBER-
[2016-11-28 13:51] LABS: BILIRUBIN,DIRECT 0.5 mg/dL (0.0-0.2); BILIRUBIN,TOTAL 1.7 mg/dL (0.2-1.0); CALCIUM, SERUM 9.1 mg/dL (8.5-10.1); CREATININE 1.8 mg/dL (0.6-1.3); POTASSIUM 4.6 mmol/L (3.5-5.1); TOTAL PROTEIN, SERUM 6.9 g/dL (6.4-8.2)
[2016-11-28 13:54] LABS: LACTIC ACID 1.3 mmol/L (0.4-2.0)
[2016-11-28 13:55] LABS: INR 1.63 (0.87-1.13)
[2016-11-28] MEDS ORDERED: PIPERACILLIN /TAZOBACTAM 3.375 G in IV D5W 50 ML IV ONE (14:00)
[2016-11-28] MEDS ORDERED: DILTIAZEM HCL 50 MG IV IV ONE (14:00)
--- NOTE | 2016-11-28 14:15 | NUR ---
REPORT GIVEN TO BARNEY CALVO FOR TELE ROOM 321-2
[2016-11-28] MEDS ORDERED: DILTIAZEM HCL 50 MG IV ONE (14:25)
[2016-11-28 15:00] VITALS: BP 103/52
--- NOTE | 2016-11-28 15:10 | NUR ---
DIRECTOR OF MARKET INTELLIGENCEMACHINE SILVER STRIPPER PATIENT BROUGHT IN FROM ER. PATIENT IS AWAKE, A/O X2, COOPERATIVE. V/S TAKEN AND RECORDED, LUANNE MIDLINE PATENT AND INTACT, FLUSHES WELL. LEADS APPLIED FOR TELEMONITOR. SKIN INTACT, ABLE TO TURN AND REPOSITION IN BED WITH ASSIST. PLACE CALL LIGHT WITHIN REACH. PER ER MEME PATIENT RECEIVED CARDIZEM 10MG IV PRIOR TRANSFERRED TO TELEMETRY UNIT DUE TO AFIB 120s IN THE MONITOR. WILL CONT TO MONITOR PATIENT.
[2016-11-28 15:16] VITALS: BP 103/52
[2016-11-28] MEDS ORDERED: HYDROCODONE/APAP 5/325MG 1 EACH TABLET PO PRN (16:00)
[2016-11-28] MEDS ORDERED: ZOLPIDEM TARTRATE 5 MG TABLET PO PRN (16:00)
[2016-11-28] MEDS ORDERED: Z GUARD REMEDY 2 OZ OINT TP PRN (16:00)
[2016-11-28] MEDS ORDERED: ACETAMINOPHEN 325 MG TABLET PO PRN (16:00)
[2016-11-28] MEDS ORDERED: ONDANSETRON HCL/PF 4 MG/2 ML VIAL IVP PRN (16:00)
--- NOTE | 2016-11-28 16:04 | NUR ---
URINE CATH COLLECTED AND SPECIMEN SEND TO LAB ORDERED.
[2016-11-28 16:42] LABS: APPEARANCE,URINE CLEAR (CLEAR); BILIRUBIN,URINE NEGATIVE (NEGATIVE); BLOOD, URINE NEGATIVE Ery/uL (NEGATIVE); COLOR,URINE YELLOW (YELLOW); KETONES,URINE NEGATIVE (NEGATIVE); LEUKOCYTE ESTERASE ,URINE NEGATIVE (NEGATIVE); NITRITE, URINE NEGATIVE (NEGATIVE); PROTEIN,URINE NEGATIVE (NEGATIVE); UGLUCOSE NEGATIVE (NEGATIVE)
[2016-11-28 16:48] LABS: ADD URINE CULTURE NO; BACTERIA,URINE 1+ /HPF (None Seen); RBC,URINE 0-2 /HPF (0-2); SQUAMOUS EPITHELIAL CELL,UR Few /HPF (None Seen); WBC,URINE 0-2 /HPF (0-3)
[2016-11-28 17:30] VITALS: BP 113/73
[2016-11-28] MEDS: hydrALAZINE HCL 10 MG TABLET PO SCH (17:58)
[2016-11-28] MEDS: WARFARIN SODIUM 2 MG TABLET PO SCH (17:59)
[2016-11-28] MEDS ORDERED: GUAIFENESIN/CODEINE 10 ML UDC PO PRN (18:00)
--- NOTE | 2016-11-28 19:06 | NUR ---
DYE BOARDING MACHINE OPERATOR CLOSING NOTES PATIENT IN BED, A/O X3. ON TELE MONITOR AFIB HR 82, APPEARS COMFORTABLE IN BED, DENIES CHEST PAIN. BREATHING EVEN AND NON LABORED, NO SOB NOTED. AFEBRILE. VOIDED WITHOUT DIFFICULTY, ABLE TO TURN AND REPOSITION IN BED WITH ASSIST. CALL LIGHT WITHIN REACH. WILL ENDORSE TO ASSEMBLER TRIM RN FOR CONTINUITY OF CARE.
--- NOTE | 2016-11-28 19:10 | NUR ---
RN OPEN NOTES RECEIVED PATIENT AWAKE IN BED. A/O X3. NO SIGNS OF DISTRESS OR DISCOMFORT. BREATHING EVEN AND UNLABORED. ON 2LPM O2 VIA NC. ON TELE MONITORING AFIB HR 82 NOTED. LUANNE MIDLINE PATENT AND INTACT. NO SIGNS OF REDNESS OR INFILTRATION. BED IN LOW LOCKED POSITION WITH SIDE RAILS X3. WILL CONTINUE TO MONITOR.
[2016-11-28 20:00] VITALS: BP 109/64
[2016-11-28] MEDS: ZOLPIDEM TARTRATE 5 MG TABLET PO PRN (21:08)
[2016-11-28] MEDS: METOPROLOL TARTRATE 25 MG TABLET PO SCH (21:08)
--- NOTE | 2016-11-28 21:13 | NUR ---
RN NOTES PATIENT REQUEST SLEEPING PILL. ADMINISTERED AMBIEN 5MG PRN FOR SLEEP. WILL CONTINUE TO MONITOR.
[2016-11-29] VITALS (8 sets, daily range): BP systolic 106–128; BP diastolic 54–94
[2016-11-29] MEDS: hydrALAZINE HCL 10 MG TABLET PO SCH ×5 (00:50→23:16)
[2016-11-29] MEDS: IPRATROPIUM NEB FS 0.5 MG/2.5 ML AMPUL.NEB IH SCH ×4 (02:17→20:10)
[2016-11-29] MEDS: ACETYLCYSTEINE 10% SOLN 400 MG/4 ML VIAL HHN SCH ×3 (02:17→14:30)
[2016-11-29] MEDS: ALBUTEROL HALF STRENGTH 1.25 MG/3 ML VIAL.NEB IH SCH ×4 (02:17→20:10)
--- NOTE | 2016-11-29 06:51 | NUR ---
RN CLOSING NOTES PATIENT AWAKE IN BED. A/O X3. NO SIGNS OF DISTRESS OR DISCOMFORT. BREATHING EVEN AND UNLABORED. ON 2LPM O2 VIA NC. ON TELE MONITORING AFIB HR 62 NOTED. LUANNE MIDLINE PATENT AND INTACT. NO SIGNS OF REDNESS OR INFILTRATION. PATIENT KEPT CLEAN DRY AND COMFORTABLE. ALL NEEDS MET. NO SIGNIFICANT CHANGES THROUGH OUT SHIFT. BED IN LOW LOCKED POSITION WITH SIDE RAILS X3. WILL ENDORSE TO AM SHIFT FOR FACUNDO.
--- NOTE | 2016-11-29 07:23 | NUR ---
WEIGHT AND BALANCE CONTROL AGENT INITIAL NOTES REPORT RECEIVED AT THE BEDSIDE. PATIENT IS RESTING COMFORTABLY IN BED. NO SOB OR DISTRESS NOTED AT THIS TIME. PATIENT REPORTS MILD PAIN IN THE SHOULDERS AND UPPER BACK, BUT REFUSES PAIN MEDICATIONS. HEART RATE A FLUTTER IN THE MID 60'S. BED IN A LOW POSITION, CALL LIGHT WITHIN PATIENT REACH. WILL CONTINUE TO MONITOR.
[2016-11-29] MEDS ORDERED: PANTOPRAZOLE 40 MG TABLET.DR PO SCH (07:30)
[2016-11-29 07:46] LABS: BASOPHILS % (AUTO) 0.1 % (0.0-2.0); EOSINOPHILS # (AUTO) 0.1 /CMM (0.0-0.7); EOSINOPHILS % (AUTO) 0.6 % (0.0-6.0); HEMATOCRIT 40 % (33-45); HEMOGLOBIN 13.1 g/dL (11.5-14.8); LYMPHOCYTES # (AUTO) 2.4 /CMM (0.8-4.8); LYMPHOCYTES % (AUTO) 17.4 % (20.0-44.0); MEAN CORPUSCULAR HEMOGLOBIN 29 PG (26.0-33.0); MEAN CORPUSCULAR HGB CONC 33 g/dl (31.0-36.0); MEAN CORPUSCULAR VOLUME 90 fL (82-100); MONOCYTES # (AUTO) 1.1 /CMM (0.1-1.30); MONOCYTES % (AUTO) 7.6 % (2.0-12.0); NEUTROPHILS # (AUTO) 10.2 /CMM (1.8-8.9); NEUTROPHILS % (AUTO) 74.3 % (43.0-81.0); PLATELET COUNT (AUTO) 317 /CMM (150-450); RDW COEFFICIENT OF VARIATION 13.7 (11.5-15.0); RED BLOOD CELL COUNT(AUTO) 4.44 MIL/uL (4.0-5.2); WHITE BLOOD COUNT (AUTO) 13.8 K/uL (4.3-11.0)
[2016-11-29 08:00] LABS: ALBUMIN 2.9 g/dL (3.4-5.0); BILIRUBIN,TOTAL 1.5 mg/dL (0.2-1.0); CALCIUM, SERUM 9.2 mg/dL (8.5-10.1); CREATININE 1.6 mg/dL (0.6-1.3); PHOSPHORUS 3.1 mg/dL (2.5-4.9); POTASSIUM 4.6 mmol/L (3.5-5.1); TOTAL PROTEIN, SERUM 6.6 g/dL (6.4-8.2)
[2016-11-29 08:03] LABS: THYROID STIMULATING HORMONE 0.186 uIU/mL (0.358-3.74)
[2016-11-29] MEDS: LEVOTHYROXINE SODIUM 50 MCG TABLET PO SCH (08:21)
[2016-11-29] MEDS: ASPIRIN EC 81 MG TABLET.DR PO SCH (08:21)
[2016-11-29] MEDS: FUROSEMIDE 20 MG TABLET PO SCH ×2 (08:21→08:22)
[2016-11-29] MEDS: predniSONE 20 MG TABLET PO SCH (08:21)
[2016-11-29] MEDS: METOPROLOL TARTRATE 25 MG TABLET PO SCH ×2 (08:21→20:32)
[2016-11-29] MEDS: PANTOPRAZOLE 40 MG TABLET.DR PO SCH (08:22)
--- NOTE | 2016-11-29 08:56 | NUR ---
ADMISSIONS CONSULTANT NOTE PATIENT REFUSING LASIX.
[2016-11-29 09:46] LABS: INR 1.33 (0.87-1.13); PROTHROMBIN TIME 14.5 SECS (9.5-12.7)
[2016-11-29] MEDS ORDERED: VANCOMYCIN 1 GM in IV D5W 250 ML IV ONE (11:30)
[2016-11-29] MEDS ORDERED: PIPERACILLIN /TAZOBACTAM 3.375 G in IV D5W 50 ML IV SCH (12:00)
[2016-11-29] MEDS ORDERED: FEE PK DOSING 1 MIN EA MC ONE (12:23)
[2016-11-29] MEDS ORDERED: SECONDARY IV SET 1 EA INFUS.SET MC ONE (12:32)
[2016-11-29] MEDS ORDERED: IV NS 0.9% 250 ML IV ONE (12:32)
[2016-11-29] MEDS ORDERED: IV SET PRIMARY PUMP SET 1 EA INFUS.SET MC ONE (12:32)
[2016-11-29] MEDS: PIPERACILLIN /TAZOBACTAM 2.25 G in IV D5W 50 ML IV SCH ×3 (12:59→23:16)
[2016-11-29] MEDS: VANCOMYCIN 0.75 GM in IV D5W 250 ML IV SCH (13:49)
[2016-11-29] MEDS: WARFARIN SODIUM 2 MG TABLET PO SCH (17:26)
--- NOTE | 2016-11-29 17:27 | NUR ---
MS RN NOTES PULSE IS ONLY 58. HOLDING EVENING BP MED.
--- NOTE | 2016-11-29 18:45 | NUR ---
MS RN CLOSING NOTES NO SIGNIFICANT CHANGES IN PATIENT CONDITION THROUGHOUT THE SHIFT. NO SOB OR DISTRESS NOTED AT THIS TIME. PATIENT DENIES PAIN. BED IN A LOW POSITION, CALL LIGHT WITHIN PATIENT REACH, FAMILY AT THE BEDSIDE. WILL ENDORSE FOR FACUNDO.
--- NOTE | 2016-11-29 20:10 | NUR ---
MS/RN NOTES RECEIVED PATIENT IN BED. ALERT, ORIENTED X3. FARSI SPEAKING. FAMILY MEMBER WAS AT BEDSIDE. ATTEND TO NEEDS AND WILL ATTEND TO NEEDS. PROVIDE FLUIDS. KEPT COMFORTABLE. B/P 111/60, PULSE 75, R-18, TEMP 97.5 O2SAT 98%. CALL LIGHTS WITHIN REACH.
[2016-11-29] MEDS: ZOLPIDEM TARTRATE 5 MG TABLET PO PRN (20:33)
[2016-11-30] MEDS: VANCOMYCIN 0.75 GM in IV D5W 250 ML IV SCH ×2 (00:12→13:00)
[2016-11-30] MEDS: IPRATROPIUM NEB FS 0.5 MG/2.5 ML AMPUL.NEB IH SCH ×4 (00:59→20:33)
[2016-11-30] MEDS: ACETYLCYSTEINE 10% SOLN 400 MG/4 ML VIAL HHN SCH ×3 (00:59→13:25)
[2016-11-30] MEDS: ALBUTEROL HALF STRENGTH 1.25 MG/3 ML VIAL.NEB IH SCH ×4 (00:59→20:33)
[2016-11-30] MEDS: PIPERACILLIN /TAZOBACTAM 2.25 G in IV D5W 50 ML IV SCH ×3 (05:04→17:39)
[2016-11-30] MEDS ORDERED: IV NS 0.9% 250 ML IV ONE (05:10)
[2016-11-30] MEDS: hydrALAZINE HCL 10 MG TABLET PO SCH ×3 (06:15→17:46)
[2016-11-30 06:56] LABS: CREATININE 1.6 mg/dL (0.6-1.3); POTASSIUM 4.5 mmol/L (3.5-5.1)
[2016-11-30 06:59] LABS: INR 1.3 (0.87-1.13); PROTHROMBIN TIME 14.1 SECS (9.5-12.7)
--- NOTE | 2016-11-30 06:59 | NUR ---
MS/RN NOTES PATIENT IN BED, ALERT X3 ABLE TO VERBALIZE NEEDS. NO S/S OF SOB OR DISTRESS. WILL ENDORSE TO AM RB FOR FACUNDO. CALL LIGHTS WITHIN REACH.
[2016-11-30 07:16] LABS: BASOPHILS % (AUTO) 0.2 % (0.0-2.0); EOSINOPHILS # (AUTO) 0.1 /CMM (0.0-0.7); EOSINOPHILS % (AUTO) 0.8 % (0.0-6.0); HEMATOCRIT 38 % (33-45); HEMOGLOBIN 12.2 g/dL (11.5-14.8); LYMPHOCYTES # (AUTO) 2.1 /CMM (0.8-4.8); LYMPHOCYTES % (AUTO) 14.3 % (20.0-44.0); MEAN CORPUSCULAR HEMOGLOBIN 29 PG (26.0-33.0); MEAN CORPUSCULAR HGB CONC 33 g/dl (31.0-36.0); MEAN CORPUSCULAR VOLUME 90 fL (82-100); MONOCYTES # (AUTO) 1.2 /CMM (0.1-1.30); MONOCYTES % (AUTO) 7.8 % (2.0-12.0); NEUTROPHILS # (AUTO) 11.5 /CMM (1.8-8.9); NEUTROPHILS % (AUTO) 76.9 % (43.0-81.0); PLATELET COUNT (AUTO) 310 /CMM (150-450); RDW COEFFICIENT OF VARIATION 13.2 (11.5-15.0); RED BLOOD CELL COUNT(AUTO) 4.16 MIL/uL (4.0-5.2); WHITE BLOOD COUNT (AUTO) 14.9 K/uL (4.3-11.0)
[2016-11-30] MEDS: PANTOPRAZOLE 40 MG TABLET.DR PO SCH (07:36)
[2016-11-30] MEDS: LEVOTHYROXINE SODIUM 50 MCG TABLET PO SCH (07:37)
[2016-11-30 08:00] VITALS: BP 127/58
--- NOTE | 2016-11-30 08:00 | NUR ---
MS RN NOTE PT. AWAKE, ALERT AND ORIENTED X3. DENIED PAIN AND SOB. VS STABLE. SIDE RAILS UP. CALL LIGHT WITHIN REACH. MONITOR CLOSELY.
--- NOTE | 2016-11-30 08:00 | NUR ---
MS RN NOTE PT. AWAKE, ALERT AND ORIENTED X3. DENIED PAIN AND SOB. O2 @2L VIA NC. SIDE RAILS UP. CALL LIGHT WITHIN REACH. MONITOR CLOSELY.
[2016-11-30] MEDS: METOPROLOL TARTRATE 25 MG TABLET PO SCH ×2 (08:26→21:38)
[2016-11-30] MEDS: predniSONE 20 MG TABLET PO SCH (08:26)
[2016-11-30] MEDS: ASPIRIN EC 81 MG TABLET.DR PO SCH (08:26)
[2016-11-30] MEDS: FUROSEMIDE 20 MG TABLET PO SCH ×3 (08:26→09:00)
--- NOTE | 2016-11-30 09:00 | NUR ---
WOUND CARE CONSULT: PATIENT SEEN AND SKIN ASSESSMENT DONE. PATIENT VERY WEAK, ABLE TO TURN AND REPOSITION HOWEVER NEEDS PROMPTING AND ASSIST, INCONTINENT, LAURA 17. SEE TODAY'S SKIN ASSESSMENT IN PCS ALONG WITH RECOMMENDATIONS DISCUSSED WITH NURSING STAFF INCLUDES MOISTURE PROTECTION AND PRESSURE PREVENTION MEASURES ORDERED. MD IN AGREEMENT WITH PLAN OF CARE. Addendum: 11/30/16 at 0902 by KIRSTIE BRIGHT WNDNU Amended: Links added.
[2016-11-30] MEDS ORDERED: LACTULOSE 10 G/15 ML UDC (PYXIS) PO ONE (11:00)
[2016-11-30] MEDS ORDERED: WARFARIN SODIUM 5 MG TABLET PO ONE (11:00)
--- NOTE | 2016-11-30 11:00 | NUR ---
PT. WALKED IN ROOM WITH PT.
[2016-11-30] MEDS ORDERED: BISACODYL SUPP (10 MG) 10 MG/SUPP.RECT SUPP.RECT RC PRN (12:30)
[2016-11-30] MEDS ORDERED: HEPARIN SODIUM, PORCINE 5000 UNITS/1 ML VIAL IV ONE (13:00)
[2016-11-30] MEDS ORDERED: IV SET PRIMARY PUMP SET 1 EA INFUS.SET MC ONE (13:12)
[2016-11-30] MEDS: HEPARIN INFUSION/D5W 500 ML IV PRN ×2 (13:22→22:10)
--- NOTE | 2016-11-30 13:30 | NUR ---
HEPARIN 4400UNITS IV BOLUS, THEN STARTED HEPARIN @1000UNITS/HR (20ML/HR) IVF BY MD'S ORDER. WILL CHECK PTT AT 19:30 TONIGHT.
[2016-11-30 16:00] VITALS: BP 114/62
--- NOTE | 2016-11-30 17:30 | NUR ---
PT. COMPLAINTS OF CONSTIPATION FOR 6DAYS. ALREADY TOOK LACTULOSE THIS AFTERNOON. PT. WANTS TO GET DULCOLAX SUPPOSITORY. SO GAVE IT.
--- NOTE | 2016-11-30 18:59 | NUR ---
CLOSING SHIFT PT. AWAKE, ALERT AND ORIENTED X3. DENIED SOB AT THIS TIME. PT. HAD BM. HEPARIN @1000UNITS/HR IVF. NO BLEEDING SIGN. SIDE RAILS UP. CALL LIGHT WITHIN REACH. MONITOR CLOSELY.
--- NOTE | 2016-11-30 19:45 | NUR ---
MS INNA INITIAL NOTES GOT REPORT FROM AM NURSE BLADIMIR AND DOING ROUNDS, PT JUST BACK TO BED AFTER USING THE RESTROOM, NO SIGNS OF ANY ACUTE DISTRESS NOTED. STILL ON HEPARIN DRIP AT 1000 UNIT /HR PER HEPARIN DRIP PROTOCOL. DENIES ANY PAIN OR ANY DISCOMFORT AT THIS TIME. SHE ABLE TO AMBULATE WITH SOME HELPED. KEPT HER COMFORTABLE AT ALL TIMES. WILL CONTINUE TO MONITOR PLACE CALL LIGHT AT REACH.
[2016-11-30 20:00] VITALS: BP 122/59
--- NOTE | 2016-11-30 21:10 | NUR ---
MS INNA NOTES GOT A CALL FROM LAB , CRITICAL RESULT APTT 125. HOLD HEPARIN FOR ONE HOUR PER HEPARIN PROTOCOL THEN DECREASE DRIP BY 3 UNITS/KG/HR AND ORDERED LAB TEST PTT AFTER EACH DOSE ADJUSTMENT . MYRNA/LUBNA AND CHARGE NURSE CANDIDA JIMENEZ. WILL CONTINUE TO MONITOR.
[2016-11-30] MEDS: ZOLPIDEM TARTRATE 5 MG TABLET PO PRN (21:37)
--- NOTE | 2016-11-30 21:40 | NUR ---
LIFTER NOTES AMBIEN 5 MG GIVEN PER PT REQUESTED. SAFETY PRECAUTION IMPLEMENTED AND OBSERVED. HEPARIN DRI HOLD FOR A WHILE PER PROTOCOL. KEPT HER WARM AND COMFORTABLE AT ALL TIMES. PLACE CALL LIGHT AT REACH.
--- NOTE | 2016-11-30 22:10 | NUR ---
AGRICULTURAL SYSTEMS SPECIALIST/NOTES HEPARIN DRIP STARTED TO INFUSED AGAIN AT 850 UNITS/HR PER HEPARIN PROTOCOL BY NURSE MYRNA/RN ORDERED. WILL CONTINUE TO MONITOR.
--- NOTE | 2016-12-01 | NUR ---
IMPORT MANAGER/NOTES PT SLEEPING COMFORTABLY IN BED WITHOUT ANY ACUTE DISTRESS NOTED. HEPARIN DRIP STILL INFUSING, AND ZOSYN IVP BAG ALSO INFUSING ON DIFF. SITE . NO ADVERSE REACTION NOTED. WILL CONTINUE TO MONITOR. PLACE CALL LIGHT AT REACH.
[2016-12-01] MEDS: PIPERACILLIN /TAZOBACTAM 2.25 G in IV D5W 50 ML IV SCH ×4 (00:06→17:00)
[2016-12-01] MEDS: ALBUTEROL HALF STRENGTH 1.25 MG/3 ML VIAL.NEB IH SCH ×4 (00:42→20:09)
[2016-12-01] MEDS: IPRATROPIUM NEB FS 0.5 MG/2.5 ML AMPUL.NEB IH SCH ×4 (00:42→20:09)
[2016-12-01] MEDS: ACETYLCYSTEINE 10% SOLN 400 MG/4 ML VIAL HHN SCH ×3 (00:43→13:22)
[2016-12-01] MEDS: VANCOMYCIN 0.75 GM in IV D5W 250 ML IV SCH ×2 (00:57→12:51)
[2016-12-01 04:45] LABS: HEMATOCRIT 38 % (33-45); HEMOGLOBIN 12.6 g/dL (11.5-14.8); LYMPHOCYTES # (AUTO) 2.1 /CMM (0.8-4.8); LYMPHOCYTES % (AUTO) 12.6 % (20.0-44.0); MEAN CORPUSCULAR HEMOGLOBIN 30 PG (26.0-33.0); MEAN CORPUSCULAR HGB CONC 33 g/dl (31.0-36.0); MEAN CORPUSCULAR VOLUME 90 fL (82-100); MONOCYTES # (AUTO) 1.3 /CMM (0.1-1.30); MONOCYTES % (AUTO) 7.7 % (2.0-12.0); NEUTROPHILS # (AUTO) 13.4 /CMM (1.8-8.9); NEUTROPHILS % (AUTO) 79.7 % (43.0-81.0); PLATELET COUNT (AUTO) 312 /CMM (150-450); RDW COEFFICIENT OF VARIATION 13.3 (11.5-15.0); RED BLOOD CELL COUNT(AUTO) 4.26 MIL/uL (4.0-5.2); WHITE BLOOD COUNT (AUTO) 16.8 K/uL (4.3-11.0)
[2016-12-01 05:03] LABS: CALCIUM, SERUM 9.2 mg/dL (8.5-10.1); CREATININE 1.9 mg/dL (0.6-1.3); MAGNESIUM 1.7 mg/dL (1.8-2.4); PHOSPHORUS 3.2 mg/dL (2.5-4.9); POTASSIUM 4.5 mmol/L (3.5-5.1)
[2016-12-01 05:08] LABS: INR 1.56 (0.87-1.13); PROTHROMBIN TIME 17.2 SECS (9.5-12.7)
--- NOTE | 2016-12-01 05:30 | NUR ---
ETCHER AIRCRAFT/NOTES GOT A CRITICAL LAB RESULT FOR APTT 125, HOLD HEPARIN DRIP FOR ONE HOUR THEN DECREASE DRIP BY 3 UNITS PER HEPARIN PROTOCOL . ANOTHER PTT TEST AFTER 6 HRS. LUBNA NORRIS AND CHARGE NURSE CANDIDA JIMENEZ .
[2016-12-01] MEDS: HEPARIN INFUSION/D5W 500 ML IV PRN ×2 (06:30→14:09)
[2016-12-01] MEDS: hydrALAZINE HCL 10 MG TABLET PO SCH ×4 (06:44→18:00)
[2016-12-01] MEDS: PANTOPRAZOLE 40 MG TABLET.DR PO SCH (06:45)
[2016-12-01] MEDS: LEVOTHYROXINE SODIUM 50 MCG TABLET PO SCH (06:45)
--- NOTE | 2016-12-01 07:00 | NUR ---
MS ELEVATOR WORKER CLOSING NOTES PT BACK TO REST AFTER MORNING CARE DONE , STABLE JUSTYNA THE NIGHT AND SLEPT WELL. NO SIGNS OF ANY ACUTE DISTRESS NOTED. HEPARIN DRIP INFUSING AT THIS TIME AT 700UNIT.HR PER HEPARIN PROTOCOL .HEPLOCK ON HER RIGHT HAND PATENT AND INTACT. ALL DUE MEDS GIVEN AND ALL NEEDS MET. ENDORSE TO AM NURSE FOR CONTINUITY OF CARE. PLACE CALL LIGHT AT REACH.
--- NOTE | 2016-12-01 07:15 | NUR ---
MS RN OPENING RECEIVED PT A/OX4 DENIES PAIN, SOB DIFFICULTY BREATHING. ON 2LPM O2 100% WILL CHECK ROOM AIR. PATIENT STATES NO NEEDS AT THIS TIME AND IN POSITION OF COMFORT. HEPARIN DRIP INFUSING AT THIS TIME AT 700UNIT/HR PER HEPARIN PROTOCOL .HEPLOCK ON HER RIGHT HAND PATENT AND INTACT SALINE FLUSHED. PATIENT LEFT WITH CALL LIGHT IN REACH, BED LOWERED AND LOCKED, RAILS UPX3 FOR SAFETY AND WILL ROUND Q2H OR LESS PER NEEDS
[2016-12-01 08:00] VITALS: BP 109/68
[2016-12-01] MEDS: FUROSEMIDE 20 MG TABLET PO SCH (08:18)
[2016-12-01] MEDS: ASPIRIN EC 81 MG TABLET.DR PO SCH (08:18)
[2016-12-01] MEDS: METOPROLOL TARTRATE 25 MG TABLET PO SCH ×2 (08:18→20:49)
[2016-12-01] MEDS: predniSONE 20 MG TABLET PO SCH (08:18)
[2016-12-01] MEDS ORDERED: Magnesium 1GM/D5W 100ML PREMIX 100 ML IV SCH ×2 (11:54→13:00)
--- NOTE | 2016-12-01 13:02 | NUR ---
MS RN NOTES PTT RESULT 98. STOPPING HEPARIN FOR 1 HOUR AND WILL REDUCE 150U/HR PER PROTOCOL.
--- NOTE | 2016-12-01 13:05 | NUR ---
MS RN NOTES DR BENÍTEZ AT BEDSIDE
[2016-12-01] MEDS ORDERED: WARFARIN SODIUM 5 MG TABLET PO ONE (13:30)
[2016-12-01 13:46] LABS: INR 1.74 (0.87-1.13); PROTHROMBIN TIME 19.3 SECS (9.5-12.7)
--- NOTE | 2016-12-01 14:05 | NUR ---
MS RN NOTES PER PROTOCOL RESUMED HEPARIN AT 3U/KG/H LESS. WILL DRAW ANOTHER APTT AT 2000
--- NOTE | 2016-12-01 15:36 | NUR ---
MS RN NOTES VANCO GIVEN AT 1251 AND LAB ORDERED TROUGH AT 1423 TO ADD TO AM LABS. TROUGH IS HIGH. CALLED LAB TO NOTIFY..THEY WILL F/U FUTURE ORDERS ON HOLD AT THIS TIME
[2016-12-01 16:00] VITALS: BP 134/76
--- NOTE | 2016-12-01 16:00 | NUR ---
MS RN NOTES PATIENT AWARE WE ARE NEEDING URINE SAMPLE
--- NOTE | 2016-12-01 19:13 | NUR ---
MS RN CLOSING PT STABLE NO COMPLICATIONS NOT CHANGES THROUGHOUT DAY. ALL DUE MEDS GIVEN AND ALL NEEDS MET. PATIENT AWARE NEEDING URINE SAMPLE AND WILL NOTIFY WHEN SHE WILL GET UP TO USE RESTROOM. PATIENT IN POSITION OF COMFORT AND CALL LIGHT IN REACH, BED LOWERED AND LOCKED, RAILS UPX3 FOR SAFETY AND BED ALARM ON. WILL ENDORSE CARE TO RN AT THIS TIME. HEP DRIP RUNNING ORDERED PER PROTOCOL.
--- NOTE | 2016-12-01 19:30 | NUR ---
RN NOTE; RECEIVED PT IN BED AWAKE AND ALERT. BREATHING EVENLY. NO SOB. NO DISTRESS. SKIN WARM AND DRY. ON ONGOING HEPARIN DRIP W/ NO A/R . NO S/S OF ABNORMAL BLEEDING. NO C/O PAIN OR DISCOMFORT, NEEDS ATTENDED. BED LOW LOCKED. CALL LIGHT WITHIN REACH. WILL CONT TO MONITOR
[2016-12-01 20:00] VITALS: BP 116/68
[2016-12-01 20:49] LABS: INR 1.88 (0.87-1.13)
[2016-12-02] MEDS: PIPERACILLIN /TAZOBACTAM 2.25 G in IV D5W 50 ML IV SCH ×4 (00:03→20:48)
[2016-12-02] MEDS: hydrALAZINE HCL 10 MG TABLET PO SCH ×2 (00:04→06:10)
[2016-12-02] MEDS: IPRATROPIUM NEB FS 0.5 MG/2.5 ML AMPUL.NEB IH SCH ×4 (00:48→20:26)
[2016-12-02] MEDS: ACETYLCYSTEINE 10% SOLN 400 MG/4 ML VIAL HHN SCH ×3 (00:48→16:37)
[2016-12-02] MEDS: ALBUTEROL HALF STRENGTH 1.25 MG/3 ML VIAL.NEB IH SCH ×3 (00:48→20:26)
[2016-12-02 03:34] LABS: BASOPHILS % (AUTO) 0.2 % (0.0-2.0); EOSINOPHILS % (AUTO) 0.1 % (0.0-6.0); HEMATOCRIT 40 % (33-45); HEMOGLOBIN 13.1 g/dL (11.5-14.8); LYMPHOCYTES # (AUTO) 1.9 /CMM (0.8-4.8); LYMPHOCYTES % (AUTO) 11.4 % (20.0-44.0); MEAN CORPUSCULAR HEMOGLOBIN 30 PG (26.0-33.0); MEAN CORPUSCULAR HGB CONC 33 g/dl (31.0-36.0); MEAN CORPUSCULAR VOLUME 91 fL (82-100); MONOCYTES % (AUTO) 6.2 % (2.0-12.0); NEUTROPHILS # (AUTO) 13.5 /CMM (1.8-8.9); NEUTROPHILS % (AUTO) 82.1 % (43.0-81.0); PLATELET COUNT (AUTO) 329 /CMM (150-450); RDW COEFFICIENT OF VARIATION 13.3 (11.5-15.0); RED BLOOD CELL COUNT(AUTO) 4.39 MIL/uL (4.0-5.2); WHITE BLOOD COUNT (AUTO) 16.5 K/uL (4.3-11.0)
[2016-12-02 03:50] LABS: INR 1.79 (0.87-1.13); PROTHROMBIN TIME 19.9 SECS (9.5-12.7)
[2016-12-02 03:52] LABS: CALCIUM, SERUM 9.7 mg/dL (8.5-10.1); CREATININE 1.7 mg/dL (0.6-1.3); PHOSPHORUS 3.3 mg/dL (2.5-4.9); POTASSIUM 4.7 mmol/L (3.5-5.1)
--- NOTE | 2016-12-02 06:53 | NUR ---
RN NOTE; PT IN BED AWAKE AND ALERT. BREATHING EVENLY. NO SOB ON RA. ON ONGOING HEPARIN DRIP W/ NO A/R. NO S/S OF ABNORMAL BLEEDING. NEEDS ATTENDED. NO ACUTE CHANGES DURING THE SHIFT. AFEBRILE. CALL LIGHT WITHIN REACH. WILL CONT TO MONITOR AND WILL ENDORSE TO AM SHIFT FOR FACUNDO,
--- NOTE | 2016-12-02 07:15 | NUR ---
MS RN OPENING RECEIVED PT A/OX4 DENIES PAIN, SOB DIFFICULTY BREATHING. PATIENT ROOM AIR STABLE. PATIENT STATES NO NEEDS AT THIS TIME AND IN POSITION OF COMFORT. HEPARIN DRIP INFUSING AT THIS TIME AT 450UNIT/HR PER HEPARIN PROTOCOL .HEPLOCK ON HER RIGHT HAND PATENT AND INTACT SALINE FLUSHED. PATIENT LEFT WITH CALL LIGHT IN REACH, BED LOWERED AND LOCKED, RAILS UPX3 BED ALARM ON FOR SAFETY AND WILL ROUND Q2H OR LESS PER NEEDS. EDUCATED PATIENT IF SHE IS CONTINENT OF THE IMPORTANCE OF NOT WEARING A BRIEF THIS WILL COMPROMISE HER SKIN AND COULD CAUSE SKIN PROBLEMS. PATIENT STATES UNDERSTANDING BUT INSISTS ON WEARING A DIAPER.
[2016-12-02 08:00] VITALS: BP 106/59
[2016-12-02] MEDS: METOPROLOL TARTRATE 25 MG TABLET PO SCH ×2 (08:17→20:47)
[2016-12-02] MEDS: predniSONE 20 MG TABLET PO SCH (08:28)
[2016-12-02] MEDS: ASPIRIN EC 81 MG TABLET.DR PO SCH (08:28)
[2016-12-02] MEDS: LEVOTHYROXINE SODIUM 50 MCG TABLET PO SCH (08:28)
[2016-12-02] MEDS: PANTOPRAZOLE 40 MG TABLET.DR PO SCH (08:28)
[2016-12-02 08:53] VITALS: BP 106/59
[2016-12-02] MEDS ORDERED: WARFARIN SODIUM 7.5 MG TABLET PO ONE (09:00)
--- NOTE | 2016-12-02 10:15 | NUR ---
MS RN NOTES PATIENT WALKING AROUND FLOOR WITH FAMILY MEMBER. STABLE. HEP INFUSING ORDERED
[2016-12-02 11:08] LABS: APPEARANCE,URINE CLEAR (CLEAR); BILIRUBIN,URINE NEGATIVE (NEGATIVE); BLOOD, URINE NEGATIVE Ery/uL (NEGATIVE); COLOR,URINE YELLOW (YELLOW); KETONES,URINE NEGATIVE (NEGATIVE); LEUKOCYTE ESTERASE ,URINE NEGATIVE (NEGATIVE); NITRITE, URINE NEGATIVE (NEGATIVE); PH,URINE 7.5 (5.0-8.0); PROTEIN,URINE NEGATIVE (NEGATIVE); UGLUCOSE NEGATIVE (NEGATIVE); UROBILINOGEN,URINE 0.2 EU/dL (0.2)
[2016-12-02 11:13] LABS: CREATININE, URINE 16.8 MG/DL (30.0-125.0)
[2016-12-02 12:06] LABS: EOSINOPHIL,URINE None Seen
[2016-12-02] MEDS ORDERED: VANCOMYCIN 0.75 GM in IV D5W 250 ML IV SCH (13:00)
--- NOTE | 2016-12-02 13:12 | NUR ---
MS RN NOTES VANCO BEING SKIPPED FOR THIS DOSE VANCO TROUGH 21.
--- NOTE | 2016-12-02 15:00 | NUR ---
MS RN NOTE CALLED PHARMACY TO HAVE ANOTHER HEP BAG BROUGHT UP TO EXCHANGE AND UPDATE BAG AND TUBING
[2016-12-02 16:00] VITALS: BP_SYST 106; BP_DIAS 52; BP_DIAS 59
[2016-12-02] MEDS ORDERED: IV SET PRIMARY PUMP SET 1 EA INFUS.SET MC ONE (16:49)
[2016-12-02] MEDS: HEPARIN INFUSION/D5W 500 ML IV PRN (17:00)
--- NOTE | 2016-12-02 18:30 | NUR ---
MS RN CLOSING PT STABLE NO COMPLICATIONS. HEPARIN DRIP RUNNING ORDERED 450U/HR. PATIENT STATES NO NEEDS. FAMILY AT BEDSIDE. PATIENT WITH CALL LIGHT IN REACH, BED LOWERED AND LOCKED, RAILS UPX3 FOR SAFETY WITH BED ALARM ON. WILL ENDORSE CARE TO RN FOR FACUNDO
[2016-12-02 20:00] VITALS: BP 119/67
--- NOTE | 2016-12-02 23:22 | NUR ---
MS/RN PATIENT IS SLEEPING AT THIS TIME, AROUSABLE, APPEAR COMFORTABLE, NO SIGNS OF DISTRESS NOTED, CALL LIGHT IN REACH. WILL CONTINUE TO MONITOR.
[2016-12-03] MEDS: IPRATROPIUM NEB FS 0.5 MG/2.5 ML AMPUL.NEB IH SCH ×3 (00:55→14:25)
[2016-12-03] MEDS: ACETYLCYSTEINE 10% SOLN 400 MG/4 ML VIAL HHN SCH ×3 (00:55→14:25)
[2016-12-03] MEDS: ALBUTEROL HALF STRENGTH 1.25 MG/3 ML VIAL.NEB IH SCH ×3 (00:56→14:25)
[2016-12-03] MEDS: PIPERACILLIN /TAZOBACTAM 2.25 G in IV D5W 50 ML IV SCH (05:05)
--- NOTE | 2016-12-03 06:19 | NUR ---
MS/RN SLEEPING, AROUSABLE, NO CHANGE IN CONDITION. ALL NEEDS ATTENDED AT THIS TIME. WILL CONTINUE TO MONITOR.
[2016-12-03 06:40] LABS: INR 2.4 (0.87-1.13); PROTHROMBIN TIME 27.1 SECS (9.5-12.7)
[2016-12-03 06:54] LABS: CALCIUM, SERUM 9.6 mg/dL (8.5-10.1); CREATININE 1.6 mg/dL (0.6-1.3); POTASSIUM 4.6 mmol/L (3.5-5.1)
--- NOTE | 2016-12-03 07:10 | NUR ---
MS/RN ENDORSED TO NEXT RN RE: NO IV ACCESS, VANCOMYCIN AND ZOSYN NOT ADMINISTERED DUE TO NO IV ACCESS, AND PATIENT REFUSED BLOOD DRAW THIS MORNING. Addendum: 12/03/16 at 0730 by MYRNA MELCHOR RN PLS. DISREGARD ABOVE DOCUMENTATION. ENTERED BY MISTAKE.
--- NOTE | 2016-12-03 07:20 | NUR ---
M/S RN - OPENING NOTE Pt resting in bed, sitting up. no s/s of distress. Breathing is even and unlabored on RA. pt AOX3, farsi speaking, asking for breakfast. IV HL running TKO. Midline running heparin drip as per protocol. Side rails upx2, call light within reach, bed locked and in lowest position.
--- NOTE | 2016-12-03 07:31 | NUR ---
MS/RN NO CHANGE IN CONDITION. ENDORSED.
[2016-12-03 08:07] VITALS: BP 122/70
[2016-12-03 08:15] VITALS: BP 122/70
[2016-12-03] MEDS: ASPIRIN EC 81 MG TABLET.DR PO SCH (08:15)
[2016-12-03] MEDS: METOPROLOL TARTRATE 25 MG TABLET PO SCH (08:15)
[2016-12-03] MEDS: PANTOPRAZOLE 40 MG TABLET.DR PO SCH (08:15)
[2016-12-03] MEDS: LEVOTHYROXINE SODIUM 50 MCG TABLET PO SCH (08:15)
[2016-12-03] MEDS ORDERED: predniSONE 20 MG TABLET PO SCH (09:00)
[2016-12-03] MEDS ORDERED: ONCOUMADIN PO (10:09)
[2016-12-03] MEDS ORDERED: LEVO500T15 PO (10:12)
[2016-12-03] MEDS ORDERED: WARFARIN SODIUM 1 MG TABLET PO SCH (13:00)
--- NOTE | 2016-12-03 15:09 | NUR ---
M/S RN - DISCHARGE Orders received for discharge. pt stable. no s/s of distress. Pt refused skin pictures at this time. discharge instructions given to pt and pt's son verbally and written. report given to RN at [facility]. IV dc'd and midline dc'd. Report given to ambulance. Pt transferred to snf via ambulance. All belongings confirmed with pt at time of discharge.
== END 2016-12-03 14:55 | DRG 871 ==
LOC: ER 13:07 → TELE 14:01 → MED 11-29 09:37
PROVIDERS: ADMIT Nurse Practitioner Acute Care; ATTEND Nurse Practitioner Acute Care
DX: A41.9 Sepsis, unspecified organism (principal); N17.0 Acute kidney failure with tubular necrosis; N39.0 Urinary tract infection, site not specified; D68.59 Other primary thrombophilia; I13.0 Hypertensive heart and chronic kidney disease with heart failure and stage 1 through stage 4 chronic kidney disease, or unspecified chronic kidney disease; I50.32 Chronic diastolic (congestive) heart failure; R17 Unspecified jaundice; D63.8 Anemia in other chronic diseases classified elsewhere; E78.5 Hyperlipidemia, unspecified; N18.3 Chronic kidney disease, stage 3 (moderate); M19.90 Unspecified osteoarthritis, unspecified site; Z95.2 Presence of prosthetic heart valve; F03.90 Unspecified dementia, unspecified severity, without behavioral disturbance, psychotic disturbance, mood disturbance, and anxiety; K21.9 Gastro-esophageal reflux disease without esophagitis; E03.9 Hypothyroidism, unspecified; Z95.1 Presence of aortocoronary bypass graft; E11.22 Type 2 diabetes mellitus with diabetic chronic kidney disease; J44.9 Chronic obstructive pulmonary disease, unspecified; E11.65 Type 2 diabetes mellitus with hyperglycemia; I48.2 Chronic atrial fibrillation; K59.00 Constipation, unspecified; Z79.01 Long term (current) use of anticoagulants; Z87.891 Personal history of nicotine dependence
CPT/HCPCS: 36415; 71010-TC; 80048-TC; 80053-TC; 80061-TC; 80076-TC; 80202-TC; 81000-TC; 82570-TC; 83605-TC; 83735-TC; 84100-TC; 84300-TC; 84443-TC; 84484-TC; 85025-TC; 85610-TC; 85730-TC; 87040-TC; 87081-TC; 94799-TC; 97001-TC; 97003-TC; 97116-TC; 97530-TC; A4606; J1644; J2543; J3370; J3475; J3490; J7030; J7050; J7060; Z7610

== ENCOUNTER 2017-06-14 11:13 | Outpatient (CLI) | payer MEDICARE, OTHER ==
[~2017-06-14 11:13] MED LIST changes: +ACET-868 PO; +ACET1OOV6 HHN; +ALBU1.257 IH; -ALBUT2 NEB; +ASPI-991 PO; -ASPI81TA2 PO; -DOCU-25 PO; -GUAI10SY3 PO; +HYDR-3326 PO; +HYDR-4075 PO; -Hydralazine Hcl PO; +IPRA0.2S9 IH; -Ipratropium Bromide NEB; +LEVO500T15 PO; -PANT40TA2 PO; +PANT40TA4 PO; +POLY15DR57 EACHEYE; -PRED10TA PO; -PRED20TA GT; +PRED20TA PO; +ZOLP5TAB2 PO
[2017-06-14 11:49] LABS: ALANINE AMINOTRANSFERASE 18 U/L (12-78); ALBUMIN 3.6 g/dL (3.4-5.0); ALKALINE PHOSPHATASE 86 U/L (46-116); ASPARTATE AMINOTRANSFERASE 26 U/L (15-37); BILIRUBIN,TOTAL 1.2 mg/dL (0.2-1.0); CALCIUM, SERUM 9.9 mg/dL (8.5-10.1); CARBON DIOXIDE 36 mmol/L (21-32); CHLORIDE 102 mmol/L (98-107); CREATININE 1.5 mg/dL (0.6-1.3); GLUCOSE 148 mg/dL (74-106); POTASSIUM 5.1 mmol/L (3.5-5.1); SODIUM SERUM 137 mmol/L (136-145); TOTAL PROTEIN, SERUM 8.7 g/dL (6.4-8.2); UREA NITROGEN, BLOOD 27 mg/dL (7-18)
[2017-06-14 11:59] LABS: CHOLESTEROL 171 mg/dL (<200); HDL CHOLESTEROL 56 mg/dL (40-60); LDL 115 mg/dL (0-99); THYROID STIMULATING HORMONE 0.941 uIU/mL (0.358-3.74); TRIGLYCERIDES 82 mg/dL (30-150)
== END 2017-06-14 23:59 | disposition home or self-care (01) ==
LOC: LAB 11:13
PROVIDERS: ATTEND Internal Medicine Cardiovascular Disease
DX: E78.5 Hyperlipidemia, unspecified (principal); I10 Essential (primary) hypertension; E11.9 Type 2 diabetes mellitus without complications; R53.83 Other fatigue
CPT/HCPCS: 36415; 80053-TC; 80061-TC; 84443-TC

== ENCOUNTER 2018-10-11 11:01 | Inpatient (IN) | payer MEDICARE, OTHER ==
[~2018-10-11] VITALS: Ht 157.5 cm; Wt 53.1 kg
[~2018-10-11 11:01] MED LIST changes: +ASPI-1152 PO; -ASPI-991 PO; -HYDR-3326 PO; +HYDR-3974 PO; -LEVO500T15 PO; +LEVO500T2 PO
--- NOTE | 2018-10-11 11:05 | NUR ---
PT LAYNE FROM HOME; SENT BY PMD DR ROMANO FOR SOB, PT AAOX4, PT ON MONITOR, LOW O2 SAT ON RA, PLACED ON SUPPLEMENTAL O2, 3LPM VIA NC, O2 AT 97%. PT NOTED SOB, NAD NOTED, VSS, PENDING MD CHAPMAN
--- NOTE | 2018-10-11 11:14 | NUR ---
SEEN AND EXAMINED BY DR. TAN, LABS DRAWNED AND SENT TO LAB.
[2018-10-11 11:19] LABS: BASOPHILS % (AUTO) 0.5 % (0.0-2.0); HEMATOCRIT 45 % (33-45); HEMOGLOBIN 14.2 g/dL (11.5-14.8); LYMPHOCYTES # (AUTO) 0.6 /CMM (0.8-4.8); LYMPHOCYTES % (AUTO) 7.4 % (20.0-44.0); MEAN CORPUSCULAR HGB CONC 31 g/dl (31.0-36.0); MEAN CORPUSCULAR VOLUME 96 fL (82-100); MONOCYTES # (AUTO) 0.6 /CMM (0.1-1.30); MONOCYTES % (AUTO) 7.4 % (2.0-12.0); NEUTROPHILS # (AUTO) 6.6 /CMM (1.8-8.9); NEUTROPHILS % (AUTO) 82.7 % (43.0-81.0); PLATELET COUNT (AUTO) 198 /CMM (150-450); RED BLOOD CELL COUNT(AUTO) 4.71 MIL/uL (4.0-5.2)
[2018-10-11 11:32] LABS: CALCIUM, SERUM 9.4 mg/dL (8.5-10.1); CARBON DIOXIDE 35 mmol/L (21-32); CHLORIDE 99 mmol/L (98-107); CREATININE 1.7 mg/dL (0.6-1.3); GLUCOSE 299 mg/dL (74-106); POTASSIUM 5.1 mmol/L (3.5-5.1); SODIUM SERUM 137 mmol/L (136-145); UREA NITROGEN, BLOOD 30 mg/dL (7-18)
--- NOTE | 2018-10-11 11:36 | NUR ---
PANEL ON-CALL PAGED
[2018-10-11 11:44] LABS: ALANINE AMINOTRANSFERASE 12 U/L (12-78); ALBUMIN 3.4 g/dL (3.4-5.0); ALKALINE PHOSPHATASE 74 U/L (46-116); ASPARTATE AMINOTRANSFERASE 28 U/L (15-37); B-TYPE NATRIURETIC PEPTIDE 7712 PG/ML (0-125); BILIRUBIN,DIRECT 0.8 mg/dL (0.0-0.2); TOTAL PROTEIN, SERUM 8.6 g/dL (6.4-8.2)
[2018-10-11] MEDS ORDERED: FUROSEMIDE 40 MG/4 ML VIAL IV ONE (12:00)
[2018-10-11] MEDS ORDERED: FUROSEMIDE 40 MG/4 ML VIAL ONE (12:09)
[2018-10-11] MEDS ORDERED: WARF-68 PO ×2 (12:23)
--- NOTE | 2018-10-11 12:40 | NUR ---
110 TELE ADM DX CHF ADM MD DR BARBER
--- NOTE | 2018-10-11 12:47 | NUR ---
CALLED FOR REPORT; NURSE UNAVAILABLE WILL CALL BACK AGAIN
--- NOTE | 2018-10-11 13:27 | NUR ---
REPORT GIVEN TO LUBNA ADAMS FOR FACUNDO
[2018-10-11 14:00] VITALS: BP 122/70
[2018-10-11] MEDS ORDERED: ACETAMINOPHEN 325 MG TABLET PO PRN (14:30)
[2018-10-11] MEDS ORDERED: Z GUARD REMEDY 2 OZ OINT TP PRN (14:30)
[2018-10-11] MEDS ORDERED: LEVOTHYROXINE SODIUM 50 MCG TABLET PO SCH (14:30)
[2018-10-11] MEDS ORDERED: MAGNESIUM HYDROXIDE 30 ML UDC PO PRN (14:30)
[2018-10-11] MEDS ORDERED: ZOLPIDEM TARTRATE 5 MG TABLET PO PRN ×2 (14:30)
[2018-10-11] MEDS ORDERED: MAG HYDROX/AL HYDROX/SIMETH 30 ML UDC PO PRN (14:30)
[2018-10-11] MEDS ORDERED: HYDROCODONE/APAP 5/325MG 1 EACH TABLET PO PRN (14:30)
[2018-10-11] MEDS ORDERED: ONDANSETRON HCL/PF 4 MG/2 ML VIAL IVP PRN (14:30)
--- NOTE | 2018-10-11 14:30 | NUR ---
FIRST LEVELERSPECIAL PROGRAMS DIRECTOR NOTE RECEIVED REPORT FROM ARNULFO CALVO FROM ER.RECEIVED PATIENT IN [facility] IN THE UNIT AT 1345.PATIENT ABLE TO WALK WITH ASSIST TO BED.SHE IS AXOX4.FARSI SPEAKING ,UNDERSTAND WELSH.VITAL SIGNS STABLE.IV ON LAC#20 SALINE LOCK.ON O2 3L VIA NASAL CANULA SATURATING 96%.HISTORY PROVIDED BY PATIENT AND SON WILL CONTINUE TO MONITOR.
[2018-10-11] MEDS ORDERED: WARFARIN SODIUM 2 MG TABLET PO SCH ×2 (15:00)
[2018-10-11] MEDS: FUROSEMIDE 40 MG/4 ML VIAL IV SCH ×2 (15:02→17:42)
[2018-10-11 16:00] VITALS: BP 132/68
[2018-10-11] MEDS: POLYVINYL ALCOHOL 15 ML BOTTLE EACHEYE SCH (17:42)
[2018-10-11] MEDS: WARFARIN SODIUM 2 MG TABLET PO SCH (17:45)
--- NOTE | 2018-10-11 19:28 | NUR ---
CLOSED CIRCUIT SCREEN WATCHER CLOSING NOTE PATIENT IS AXOX4.FARSI SPEAKING ,UNDERSTAND FRISIAN.VITAL SIGNS STABLE.IV ON LAC#20 SALINE LOCK.ON O2 3L VIA NASAL CANULA SATURATING 96%.ON TELE MONITOR CONTROLLED AFIB SINCE ADMISSION.SAFETY MEASURES IN PLACE.BED ALARM IS ON.ENDORSED TO PM NURSE FOR FACUNDO.
--- NOTE | 2018-10-11 19:56 | NUR ---
PRIVATE SECTOR EXECUTIVE CLOSING NOTES, PATIENT IS IN BED SLEEPING AT THIS TIE, BREATHING EVEN AND UNLABORED, NO SOB/ACUTE DISTRESS NOTED AT THIS TIME, V ON LAC#20 S/L, ON O2 3L VIA NASAL CANULA SATURATING 96-98%, CONTROLLED AFIB ON TELE MONITOR, SAFETY MEASURES IN PLACE, AMBULATORY WITH ASSISTANCE, BED ALARM IS ON, ALL NEEDS PROVIDED, CALL LIGHT W/I REACH, WILL CONTINUE TO MONITOR CLOSELY. Addendum: 10/12/18 at 0636 by BRAYDEN KELLEY RN INITIAL NOTES
[2018-10-11 20:00] VITALS: BP 131/64
[2018-10-11] MEDS: METOPROLOL TARTRATE 25 MG TABLET PO SCH (20:48)
[2018-10-12] VITALS (7 sets, daily range): BP systolic 95–142; BP diastolic 41–68
[2018-10-12 06:24] LABS: BASOPHILS % (AUTO) 0.3 % (0.0-2.0); EOSINOPHILS % (AUTO) 3.1 % (0.0-6.0); HEMATOCRIT 40 % (33-45); HEMOGLOBIN 12.7 g/dL (11.5-14.8); LYMPHOCYTES # (AUTO) 1.2 /CMM (0.8-4.8); MEAN CORPUSCULAR HGB CONC 32 g/dl (31.0-36.0); MEAN CORPUSCULAR VOLUME 95 fL (82-100); MONOCYTES # (AUTO) 0.8 /CMM (0.1-1.30); NEUTROPHILS % (AUTO) 72.6 % (43.0-81.0); PLATELET COUNT (AUTO) 171 /CMM (150-450); RED BLOOD CELL COUNT(AUTO) 4.26 MIL/uL (4.0-5.2); WHITE BLOOD COUNT (AUTO) 8.3 K/uL (4.3-11.0)
--- NOTE | 2018-10-12 06:40 | NUR ---
REGIONAL EHS MANAGER CLOSING NOTES, PATIENT IS IN BED SLEEPING AT THIS TIME, BREATHING EVEN AND UNLABORED, NO SOB/ACUTE DISTRESS NOTED AT THIS TIME, IV ACCESS ON LAC#20 S/L, ON O2 3L VIA NASAL CANULA SATURATING 92-95%, CONTROLLED AFIB ON TELE MONITOR, SAFETY MEASURES IN PLACE, AMBULATORY WITH ASSISTANCE, BED ALARM IS ON,ASSISTED TO BSC NEEDED, NO SIGNIFICANT CHANGE IN CONDITION THROUGHOUT TH NIGHT, TYLENOL GIVEN ONCE DURING THE SHIFT DUE TO BODY TEMP ELEVATED, ALL NEEDS PROVIDED, CALL LIGHT W/I REACH, WILL ENDORSE CONTINUITY OF CARE TO ONCOMING NURSE.
[2018-10-12 06:48] LABS: ALANINE AMINOTRANSFERASE 14 U/L (12-78); ALKALINE PHOSPHATASE 60 U/L (46-116); ASPARTATE AMINOTRANSFERASE 26 U/L (15-37); BILIRUBIN,TOTAL 1.5 mg/dL (0.2-1.0); CHLORIDE 97 mmol/L (98-107); CREATININE 1.8 mg/dL (0.6-1.3); GLUCOSE 136 mg/dL (74-106); PHOSPHORUS 5.2 mg/dL (2.5-4.9); POTASSIUM 4.9 mmol/L (3.5-5.1); SODIUM SERUM 135 mmol/L (136-145); TOTAL PROTEIN, SERUM 7.5 g/dL (6.4-8.2); UREA NITROGEN, BLOOD 37 mg/dL (7-18)
[2018-10-12 06:50] LABS: CHOLESTEROL 124 mg/dL (<200); HDL CHOLESTEROL 43 mg/dL (40-60); LDL 84 mg/dL (0-99); THYROID STIMULATING HORMONE 0.887 uIU/mL (0.358-3.74); TRIGLYCERIDES 42 mg/dL (30-150)
[2018-10-12 07:00] LABS: CARBON DIOXIDE 40 mmol/L (21-32)
--- NOTE | 2018-10-12 07:07 | NUR ---
RN NOTES, INFORMED BY MAILING MACHINE OPERATOR CRITICAL LAB FOR CO2 40, INFORMED LEONARDAIAN AT THIS TIME, AND REPLIED WITH NO NEW ORDERS AT THIS TIME, AND CONTINUE TO MONITOR PATIENT, WILL ENDORSE ONCOMING NURSE.
--- NOTE | 2018-10-12 07:20 | NUR ---
HALFWAY HOUSE COUNSELOR OPENING NOTES, PATIENT IS IN BED SLEEPING AT THIS TIME, BREATHING EVEN AND UNLABORED, NO SOB/ACUTE DISTRESS NOTED AT THIS TIME, IV ACCESS ON LAC#20 S/L, ON O2 3L VIA NASAL CANULA [id number]%, CONTROLLED AFIB ON TELE MONITOR WITH HR 76, SAFETY MEASURES IN PLACE, BED ALARM IS ON, CALL LIGHT W/I REACH.WILL CONTINUE TO MONITOR.
[2018-10-12] MEDS: LEVOTHYROXINE SODIUM 50 MCG TABLET PO SCH (07:43)
[2018-10-12] MEDS: FUROSEMIDE 40 MG/4 ML VIAL IV SCH ×2 (08:26→16:37)
[2018-10-12] MEDS: METOPROLOL TARTRATE 25 MG TABLET PO SCH ×3 (08:27→16:44)
[2018-10-12] MEDS: POLYVINYL ALCOHOL 15 ML BOTTLE EACHEYE SCH (08:28)
--- NOTE | 2018-10-12 10:29 | NUR ---
MICROARRAY OPERATIONS VICE PRESIDENT NOTE SEEN BY ,UPDATED ABOUT PATIENT CONDITION.MADE AWARE THAT ELEVATED TEMP AT LAST NIGHT AND FAMILY CONCERN ABOUT BLOOD CO2 LEVEL AND H/O ABDOMINAL BLOATING EPISODES.ABDOMEN IS SOFT AND NON TENDER.DOCTOR SPOKE TO PATIENT SON IN PERSON ANSWERED ALL THE QUESTIONS.GOT NEW ORDER FOR FLUID RESTRICTION OF 1000ML/DAY.WILL CONTINUE TO MONITOR.
[2018-10-12] MEDS ORDERED: ERGOCALCIFEROL (VITAMIN D 2) 50,000 UNIT CAPSULE PO ONE (11:00)
--- NOTE | 2018-10-12 12:36 | NUR ---
FACULTY MEMBER NOTES SEEN BY WITH NEW ORDERS.
[2018-10-12] MEDS: WARFARIN SODIUM 1 MG TABLET PO SCH (16:40)
--- NOTE | 2018-10-12 18:52 | NUR ---
ARMORED CABLE MACHINE OPERATOR CLOSING NOTES, PATIENT IS IN BED , BREATHING EVEN AND UNLABORED, NO SOB/ACUTE DISTRESS NOTED AT THIS TIME, IV ACCESS ON LAC#20 S/L, ON O2 3L VIA NASAL CANULA [id number]%, CONTROLLED AFIB ON TELE MONITOR WITH HR 74, SAFETY MEASURES IN PLACE, BED ALARM IS ON, CALL LIGHT W/I REACH.WILL ENDORSE TO PM NURSE FOR FACUNDO.
--- NOTE | 2018-10-12 19:30 | NUR ---
NEWSPAPER PEDDLER: RECEIVED PT A/O X 4 WT FAMILY AT BEDSIDE. ON 3 02 VIA NC WT NO ACUTE DISTRESS. NO C/O PAIN. A. FIB CONTROLLED ON TELE MONITOR. AFEBRILE. ABLE TO SIT ON BEDSIDE COMMODE WT STANDBY ASSISTANCE. LEFT AC IV SITE INTACT AND SALINE LOCKED. HOB AT 45 DEGREES. SAFETY PRECAUTION NOTED. WILL CONTINUE TO MONITOR.
[2018-10-13] VITALS (34 sets, daily range): BP systolic 81–137; BP diastolic 24–95
--- NOTE | 2018-10-13 06:00 | NUR ---
TOOL DESIGN DRAFTER: NO SIGNIFICANT FACUNDO DURING THE SHIFT. REQUESTED ZOFRAN FOR NAUSEA EPISODE WT GOOD EFFECT. VS WITHIN PT's BASELINE. SAFETY PRECAUTION NOTED AT ALL TIMES.
[2018-10-13 06:21] LABS: BASOPHILS % (AUTO) 0.3 % (0.0-2.0); EOSINOPHILS % (AUTO) 2.8 % (0.0-6.0); HEMATOCRIT 42 % (33-45); HEMOGLOBIN 13.5 g/dL (11.5-14.8); LYMPHOCYTES % (AUTO) 12.4 % (20.0-44.0); MEAN CORPUSCULAR HGB CONC 32 g/dl (31.0-36.0); MEAN CORPUSCULAR VOLUME 95 fL (82-100); MONOCYTES # (AUTO) 0.9 /CMM (0.1-1.30); MONOCYTES % (AUTO) 10.7 % (2.0-12.0); NEUTROPHILS # (AUTO) 6.2 /CMM (1.8-8.9); NEUTROPHILS % (AUTO) 73.8 % (43.0-81.0); PLATELET COUNT (AUTO) 171 /CMM (150-450); RED BLOOD CELL COUNT(AUTO) 4.47 MIL/uL (4.0-5.2); WHITE BLOOD COUNT (AUTO) 8.4 K/uL (4.3-11.0)
[2018-10-13 06:46] LABS: CARBON DIOXIDE 39 mmol/L (21-32); CHLORIDE 97 mmol/L (98-107); CREATININE 1.6 mg/dL (0.6-1.3); GLUCOSE 140 mg/dL (74-106); POTASSIUM 4.8 mmol/L (3.5-5.1); SODIUM SERUM 139 mmol/L (136-145); UREA NITROGEN, BLOOD 37 mg/dL (7-18)
[2018-10-13] MEDS: LEVOTHYROXINE SODIUM 50 MCG TABLET PO SCH (07:29)
--- NOTE | 2018-10-13 08:00 | NUR ---
STEREOPTIC PROJECTION TOPOGRAPHER NOTES RECEIVED REPORT FROM CINDY CALVO. PATIENT A/A/O X2-3, ABLE TO MAKE NEEDS KNOWN. SOME LABORED BREATHING NOTED & INCREASED O2 TO 4LPM VIA NC. SATING WELL @ 95-96%. ON TELE W/ CONTROLLED A-FIB. LEFT AC IV INTACT & PATENT W/ DRESSING CDI, SALINE LOCKED. DENIES ANY PAIN OR DISCOMFORT @ THIS TIME. SAFETY MEASURES IN PLACE W/ SIDE RAILS UP & BED ALARM ON. WILL CONTINUE TO MONITOR.
--- NOTE | 2018-10-13 08:30 | NUR ---
ADMISSIONS OFFICER NOTES PATIENT ABLE TO EAT BREAKFAST INDEPENDENTLY W/ SET-UP ASSIST. ATE 100%.
[2018-10-13] MEDS: FUROSEMIDE 40 MG/4 ML VIAL IV SCH ×3 (09:00→16:55)
[2018-10-13] MEDS: METOPROLOL TARTRATE 25 MG TABLET PO SCH ×4 (09:00→16:59)
[2018-10-13] MEDS: POLYVINYL ALCOHOL 15 ML BOTTLE EACHEYE SCH (10:22)
[2018-10-13 10:44] LABS: ABG BASE EXCESS 14.7 mmol/L; ABG OXYGEN SATURATION 95.7 % (92.0-98.5); ABG PH 7.265 (7.350-7.450); ABG PO2 91.1 mmHg (75.0-100.0); AaDO2 369.1 mmHg; COHb 1.8 % (0.5-1.5); MetHb 0.6 % (0.0-1.5); O2Hb 93.4 % (94.0-97.0); SITE, ABG Right Radial; VENT MODE, BG SIMPLE MASK
--- NOTE | 2018-10-13 10:45 | NUR ---
BUSINESS SALES CONSULTANT NOTES PATIENT SEEN & EXAMINED BY DR BARBER. NOTED TO BE MORE ALTERED AND RECEIVED ORDERS FOR STAT CT SCAN & STAT ABG. PATIENT PLACED ON SIMPLE MASK W/ O2 @ 10LPM. SATING @ 96%.
--- NOTE | 2018-10-13 11:00 | NUR ---
TANNING DRUM OPERATOR NOTES RECEIVED ABG RESULTS. CO2 = 105. PER DR BARBER, PLACE ON BIPAP & TRANSFER TO ICU. Addendum: 10/13/18 at 1559 by MAMTA WESLEY RN PATIENT LEFT FOR CT SCAN.
--- NOTE | 2018-10-13 11:20 | NUR ---
pt rec'd on simple mask @ 11LPM. pt altered and confused. Stat abg taken per dr damico. critical results rec'd from abg and given to LUBNA Yang. Pt placed on Bipap per Dr Damico. Mepilex in place. alarms are set and audible. bipap plugged into red outlet. ambu bag bedside. will continue to monitor Addendum: 10/13/18 at 1241 by CUCO WHITE RT Amended: Links added.
--- NOTE | 2018-10-13 11:30 | NUR ---
HYDROELECTRIC POWERPLANT SUPERVISOR NOTES PATIENT PLACED ON BIPAP W/ SETTINGS 15/5, R 14 @ 50%. SATING WELL @ 100%. AWAITING ICU TRANSFER.
--- NOTE | 2018-10-13 12:45 | NUR ---
REGISTERED NURSE MIDWIFE NOTES PATIENT STILL NOTED TO BE ALTERED & UNABLE TO TAKE PO MEDS @ THIS TIME. HELD METOPROLOL. BP 118/57.
--- NOTE | 2018-10-13 13:35 | NUR ---
RN NOTES PT RECEIVED FROM EUFEMIA IN ROOM 257, ICU STATUS , PT IS A/Ox4, PLACED ON BIPAP PER MD ORDER , O2 SAT 100%, ON TELE A. FIB, HR IN 90'S , SUPPORTIVE FAMILY AT THE BEDSIDE, SR UP x3, CALL LIGHT WITHIN EASY REACH, BED LOCKED AND IN LOWEST POSITION , CONTINUE TO MONITOR .
--- NOTE | 2018-10-13 13:48 | NUR ---
BURR GRINDER NOTES TRANSFERRED PATIENT TO ICU RM 257. REPORT GIVEN TO LELA CALVO.
[2018-10-13 13:55] LABS: ABG BASE EXCESS 13.9 mmol/L; ABG OXYGEN SATURATION 93.7 % (92.0-98.5); ABG PCO2 93.1 mmHg (35.0-45.0); AaDO2 104.1 mmHg; COHb 1.6 % (0.5-1.5); MetHb 0.6 % (0.0-1.5); O2Hb 91.6 % (94.0-97.0); SITE, ABG Right Radial; VENT MODE, BG Bipap 15/5 40% RR14
--- NOTE | 2018-10-13 14:00 | NUR ---
RN NOTES REPORT GIVEN TO HÉCTOR CALVO FOR CONTINUITY OF CARE .
--- NOTE | 2018-10-13 14:15 | NUR ---
ICU/RN- OH. RECEIVED FROM RN LELA PT. IS AWAKE, ALERT, EXPRESSIVE OF NEEDS IN [facility], ON BIPAP, NOT IN ANY DISTRESS. SATS.-100%, EKG ATRIAL FIB. W/ CVR- HR-83. BP-110/61.
--- NOTE | 2018-10-13 14:18 | NUR ---
ICU/RN-SPOKE TO LUBNA OLEARY BY PHONE REGARDING PO MEDS. FOX RN STATED THAT DR. BARBER, ORDERED TO HOLD PO MEDS FOR NOW DUE TO PT. CURRENT STATUS. FOX RN WILL CLARIFY W/ FOX MENESES.
--- NOTE | 2018-10-13 14:42 | NUR ---
ICU/RN- JUST SPOKE TO PT. ROSALIND AND DR. SILVEIRA REGARDING PT. CODE STATUS, AND AGREED THAT PT. IS A FULL CODE.
[2018-10-13] MEDS: methylPREDNISolone SOD SUCC 125 MG/2ML VIAL IV SCH ×2 (14:58→21:40)
[2018-10-13 16:05] LABS: ABG BASE EXCESS 15.9 mmol/L; ABG OXYGEN SATURATION 96.7 % (92.0-98.5); ABG PCO2 93.6 mmHg (35.0-45.0); ABG PH 7.317 (7.350-7.450); ABG PO2 94.6 mmHg (75.0-100.0); COHb 1.6 % (0.5-1.5); MetHb 0.5 % (0.0-1.5); O2Hb 94.7 % (94.0-97.0); SITE, ABG Left Radial; VENT MODE, BG Bipap 20/5 RR14 40%
--- NOTE | 2018-10-13 16:07 | NUR ---
RN NOTES CLARIFIED W/ DR BARBER REGARDING PATIENT RESUMING DIET & TAKING PO MEDS. PER DR BARBER OK TO RESUME IF PATIENT IS MORE AWAKE & ALERT. INFORMED ICU NURSE HÉCTOR.
--- NOTE | 2018-10-13 16:15 | NUR ---
ICU/RN- RESULTS OF ABGS DONE AT 1600 IN, RELAYED TO DR. SILVEIRA BY PHONE, NO NEW ORDER.
[2018-10-13] MEDS: WARFARIN SODIUM 2 MG TABLET PO SCH (16:56)
--- NOTE | 2018-10-13 18:00 | NUR ---
ICU/RN-ON CARDIAC DIET, ATE 75%, WES. WELL. ASPIRATION PRECAUTIONS IN EFFECT. HOB AT 60%
--- NOTE | 2018-10-13 18:47 | NUR ---
ICU/RN- AWAKE, FAMILY AT THE BEDSIDE, NOT IN ANY DISTRESS OR PAIN, REMAINS ON BIPAP. WILL CONTINUE TO MONITOR CLOSELY PER PROTOCOL.
--- NOTE | 2018-10-13 19:45 | NUR ---
ICU/SCAFFOLD SETTER RECEIVED REPORT FROM DAY NURSE. PT IS ALERT X2-3. WITH BIPAP IS CURRENTLY ON PT WITH SATURATION IS 94%, DENIES SOB CURRENTLY. PT IS CURRENTLY ON THE MONITOR, AFIB. DIAPER IS IN PLACE, PT IS CURRENTLY ON FLUID RESTRICTION OF 1 LITERS. CALL LIGHT WITHIN REACH, ORT TO ROOM, CALL LIGHT AND VISITING HOURS.
--- NOTE | 2018-10-13 20:30 | NUR ---
ICU/INTERNAL CONTROL SPECIALIST PT IS CURRENTLY AGITATED, HAD TO CALL A INTERNAL GRINDER SET UP OPERATOR TO HELP TRANSLATE. PT WAS HAVING A PANIC ATTACK. WAS ABLE TO CLAM PT DOWN. CALL LIGHT WITHIN REACH.
[2018-10-14] VITALS (42 sets, daily range): BP systolic 89–154; BP diastolic 44–119
--- NOTE | 2018-10-14 02:00 | NUR ---
ICU/PRISM MEASURER PT PULLED UP AND REPOSITIONED, PT REFUSED TO BE CHANGED. DIAPER IS CLEAN AND DRY. WILL CONTINUE TO MONITOR THIS PT.
--- NOTE | 2018-10-14 04:20 | NUR ---
ICU/MOBILE HEAVY EQUIPMENT OPERATOR PT APPEARED TO BE RESTLESS, PT REQUESTED TO TAKE OFF BIPAP MASK. EXPLAINED UNABLE DUE TO SOB AND COPD. WILL MONITOR THIS PT.
[2018-10-14] MEDS: methylPREDNISolone SOD SUCC 125 MG/2ML VIAL IV SCH ×3 (05:06→22:09)
--- NOTE | 2018-10-14 05:30 | NUR ---
ICU/ALTERATIONS TAILOR AM LABS WERE DRAWN.
--- NOTE | 2018-10-14 08:00 | NUR ---
ASPHALT TILE FLOOR LAYER: pt.is on A/Ox2, no pain, feels cold/will warm with warm blanket, on BiPap over night, no SOB, KzS7ket.40%, O2sat. over 94%, Afib/HR below 100 over 60, SBP over 100, 1L intake restriction, no F/c by request, 1xPIVL/flushed
--- NOTE | 2018-10-14 08:20 | NUR ---
STOVE TENDER: pt.is placed on n/c O2 4L by RT/monitoring, pt.denies any pain, pt.son is in room, notified re last night orders, VS, meds, labs, POC, pt.daughter in low is notified too, AM/skin care done, was in room, updated, see new orders
[2018-10-14] MEDS: LEVOTHYROXINE SODIUM 50 MCG TABLET PO SCH (08:32)
[2018-10-14] MEDS: FUROSEMIDE 40 MG/4 ML VIAL IV SCH ×4 (08:54→22:09)
[2018-10-14] MEDS: POLYVINYL ALCOHOL 15 ML BOTTLE EACHEYE SCH (08:56)
[2018-10-14] MEDS: METOPROLOL TARTRATE 25 MG TABLET PO SCH ×3 (08:56→17:45)
--- NOTE | 2018-10-14 09:00 | NUR ---
CRYOGENIC TRANSPORT DRIVER: pt.is rest, no SOB, O2 sat. 94-96% on 4L n/c, is in room/updated with over night Bipap, ABG, current VS, O2sat., meds, labs, I/O(no f/c), see new orders
[2018-10-14 11:17] LABS: ABG BASE EXCESS 9.4 mmol/L; ABG OXYGEN SATURATION 89.2 % (92.0-98.5); ABG PCO2 70.2 mmHg (35.0-45.0); ABG PH 7.349 (7.350-7.450); ABG PO2 60.8 mmHg (75.0-100.0); AaDO2 143.7 mmHg; COHb 1.4 % (0.5-1.5); MetHb 0.6 % (0.0-1.5); O2Hb 87.4 % (94.0-97.0); SITE, ABG Right Radial; VENT MODE, BG 4L NC
--- NOTE | 2018-10-14 12:00 | NUR ---
CYBER SECURITY CONSULTANT: ordered Lasix 40mg IV x3. updated with pt.VS, O2sat. on n/c4L, ABG(pH 7.34, pCO2 70, pO2 60)meds, I/O, labs, said: keep pt.on Bipap over night, notified charge nurse, RT
--- NOTE | 2018-10-14 14:00 | NUR ---
LOW PRESSURE FIRER: INR 4.29 today, getting Coumadin 3.5mg MoWeFr, paged , got order: hold Coumadin today, resume tomorrow. PM/skin care/bedbath done again. Will repeat PT/INR tomorrow
[2018-10-14] MEDS: WARFARIN SODIUM 1 MG TABLET PO SCH (17:00)
--- NOTE | 2018-10-14 18:25 | NUR ---
COMMERCIAL LOAN ADMINISTRATOR: pt.is rest, no pain, no SOB, O2sat. over 95% on 2L n/c, HR 70-80, SBP over 100 below 150
--- NOTE | 2018-10-14 19:20 | NUR ---
ICU/SPEECH AND LANGUAGE SPECIALIST RECEIVED REPORT FROM DAY NURSE. PT IS ALERT X3. PT IS CURRENTLY ON N/C 3 LITERS WITH PM BIPAP, PT'S CURRENT SATURATION IS 95%. PT AT THIS TIME DENIES ANY SOB. PT IS CURRENTLY ON THE MONITOR, WITH AFIB. DIAPER IS IN PLACE, PT IS CURRENTLY ON FLUID RESTRICTION OF 1 LITERS DAILY. CALL LIGHT WITHIN REACH. PT TURNS AND REPOSITIONED WITH LITTLE HELP.
--- NOTE | 2018-10-14 20:10 | NUR ---
ICU/STERILE TECHNICIAN PT'S FAMILY CAME IN TO VISIT. PT APPEARS TO BE VERY HAPPY WITH VISITORS. VISITORS ARE AWARE OF PM VISITING HOURS.
[2018-10-15] VITALS (30 sets, daily range): BP systolic 110–148; BP diastolic 51–77
--- NOTE | 2018-10-15 01:45 | NUR ---
ICU/SLICING MACHINE TENDER PT PULLED UP AND REPOSITIONED, PT CHANGED DIAPER IS NOW CLEAN AND DRY. WILL CONTINUE TO MONITOR THIS PT. CALL LIGHT WITHIN REACH. NO ACUTE DISTRESS SEEN, PT APPEARS COMFORTABLE.
--- NOTE | 2018-10-15 04:30 | NUR ---
ICU/X RAY EQUIPMENT MECHANIC PT REFUSED AM LABS, CHARGE NURSE IS AWARE OF THIS.
[2018-10-15] MEDS: methylPREDNISolone SOD SUCC 125 MG/2ML VIAL IV SCH ×2 (05:12→21:47)
--- NOTE | 2018-10-15 06:52 | NUR ---
ICU/HOT METAL CAR OPERATOR NEW IV HEPLOCK WAS PLACED TO THE RIGHT HAND # 20G. THE LEFT AC #20 WAS D/C'D.
--- NOTE | 2018-10-15 06:59 | NUR ---
ICU/RECORD SYSTEMS ANALYST PT REQUESTED TO HAVE BIPAP TAKEN OFF. N/C WAS PLACED ON PT AT 4 LITERS WITH SATURATION AT 93%.
--- NOTE | 2018-10-15 07:50 | NUR ---
MEDICAL ASSISTING PROGRAM DIRECTOR: pt.is A/ox2, weak, needy, no pain now, no SOB, Bipap was removed at 07.30, on 4L n/c, O2sat. 94-96% now, SR, SBP over 100, pt.refused for morning blood draw, will explain POC for pt.again and INR monitoring request
[2018-10-15] MEDS: LEVOTHYROXINE SODIUM 50 MCG TABLET PO SCH (07:53)
[2018-10-15] MEDS: POLYVINYL ALCOHOL 15 ML BOTTLE EACHEYE SCH (08:17)
--- NOTE | 2018-10-15 09:00 | NUR ---
SENIOR ORACLE DATABASE DEVELOPER: SR/SB now 56-62, SBP 110-120, O2sat. over 94%, is in room, updated with all above, ok to give all BP meds with current VS, ok to transfer to tele, start cardiac diet, resume home meds: Levothyroxine 75 mg PO am daily(pt.confirmed dose, frequency with Lithuanian translation)
--- NOTE | 2018-10-15 09:01 | NUR ---
DRUPAL ARCHITECT: previous note is error
[2018-10-15] MEDS: METOPROLOL TARTRATE 25 MG TABLET PO SCH ×3 (09:11→17:06)
--- NOTE | 2018-10-15 09:15 | NUR ---
ANIMAL HANDLER: is in room, updated with pt.current VS, meds, ABG, I/O, O2sat. after over night Bipap removed, waiting labs results/pt.is agree now to draw blood sample, spoke with pt.son, ok to transfer to tele if ok with automobile repair service estimator
[2018-10-15 09:47] LABS: ABG BASE EXCESS 10.4 mmol/L; ABG PCO2 64.8 mmHg (35.0-45.0); ABG PH 7.387 (7.350-7.450); ABG PO2 82.9 mmHg (75.0-100.0); AaDO2 98.6 mmHg; COHb 1.1 % (0.5-1.5); MetHb 0.7 % (0.0-1.5); O2Hb 93.3 % (94.0-97.0); SITE, ABG Right Radial; VENT MODE, BG 4L NC
[2018-10-15 10:57] LABS: HEMATOCRIT 40 % (33-45); HEMOGLOBIN 12.9 g/dL (11.5-14.8); LYMPHOCYTES # (AUTO) 0.3 /CMM (0.8-4.8); MEAN CORPUSCULAR HGB CONC 32 g/dl (31.0-36.0); MEAN CORPUSCULAR VOLUME 95 fL (82-100); MONOCYTES # (AUTO) 0.2 /CMM (0.1-1.30); MONOCYTES % (AUTO) 1.5 % (2.0-12.0); NEUTROPHILS # (AUTO) 10.2 /CMM (1.8-8.9); NEUTROPHILS % (AUTO) 95.5 % (43.0-81.0); PLATELET COUNT (AUTO) 148 /CMM (150-450); RED BLOOD CELL COUNT(AUTO) 4.23 MIL/uL (4.0-5.2); WHITE BLOOD COUNT (AUTO) 10.7 K/uL (4.3-11.0)
--- NOTE | 2018-10-15 11:00 | NUR ---
PLATING INSPECTOR: lab nadira blood sample at 09.40, still no results in EMR, called to get result
[2018-10-15 11:08] LABS: CALCIUM, SERUM 9.2 mg/dL (8.5-10.1); CARBON DIOXIDE 38 mmol/L (21-32); CHLORIDE 94 mmol/L (98-107); CREATININE 2.2 mg/dL (0.6-1.3); MAGNESIUM 1.7 mg/dL (1.8-2.4); PHOSPHORUS 3.6 mg/dL (2.5-4.9); POTASSIUM 4.5 mmol/L (3.5-5.1); SODIUM SERUM 137 mmol/L (136-145); UREA NITROGEN, BLOOD 64 mg/dL (7-18)
[2018-10-15 11:23] LABS: GLUCOSE 402 mg/dL (74-106)
--- NOTE | 2018-10-15 11:25 | NUR ---
INTERNAL COMBUSTION ENGINE SUBASSEMBLER: is updated with pt.current condition, ABG after Bipap on 4L n/c, VS, I/O, said: keep pt.on Bipap over night, ok to Tele
--- NOTE | 2018-10-15 11:34 | NUR ---
CHILLER OPERATOR: lab called BG 402 now (result from 09.40am ), rechecked accuV: 334 now, will notify
--- NOTE | 2018-10-15 11:43 | NUR ---
SENIOR OFFICE SUPPORT ASSISTANT SOSA: lab called: INR 5.03, will notify
--- NOTE | 2018-10-15 12:20 | NUR ---
FILTERS ASSEMBLER: unable to reach MD via [facility] service call, will repeat
--- NOTE | 2018-10-15 12:30 | NUR ---
OUTREACH LIBRARIAN: pt.family is room, notified re VS, orders, included Bipap over night, labs, POC
--- NOTE | 2018-10-15 13:10 | NUR ---
PEDIATRIC RADIOLOGIST: spoke with , ordered: start aggressive ISS, acuuV ac&hs, change Solumedrol 60mg q8h to q12h, hold Coumadin today
[2018-10-15] MEDS ORDERED: DEXTROSE 50%-WATER 50 ML DISP.SYRIN IV PRN (13:30)
[2018-10-15] MEDS: WARFARIN SODIUM 2 MG TABLET PO SCH (13:34)
[2018-10-15] MEDS ORDERED: WARFARIN SODIUM 1 MG TABLET PO SCH (17:30)
[2018-10-15] MEDS: INSULIN REGULAR, HUMAN 100 UNIT/ML 3 ML VIAL SQ PRN (17:37)
[2018-10-15] MEDS: BLOOD SUGAR DIAGNOSTIC 1 EACH STRIP IN SCH ×2 (17:38→21:48)
--- NOTE | 2018-10-15 17:46 | NUR ---
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 over 96% on 2L n/c, BG 221/covered by ISS, initially said: pt.can go to tele if track moving machine operator is ok, after said ok to tele, but keep pt.on Bipap over night, charge nurse was notified
--- NOTE | 2018-10-15 20:00 | NUR ---
RN INITIAL NOTES RECEIVED PT IN BED, PATIENT A/A/O X2-3, ABLE TO MAKE NEEDS KNOWN. SOME LABORED BREATHING NOTED & INCREASED O2 TO 4LPM VIA NC. SATING WELL @ 95-96%. ON TELE W/ CONTROLLED A-FIB. R HAND IV INTACT & PATENT W/ DRESSING CDI, SALINE LOCKED. SAFETY MEASURES IN PLACE W/ SIDE RAILS UP & BED ALARM ON. CALL LIGHT WITH IN REACH. WILL CONTINUE TO MONITOR.
[2018-10-15] MEDS: *INSULIN REGULAR(HUMULIN R)HUM 100 UNIT/ML VIAL SQ PRN (22:22)
[2018-10-16] VITALS (20 sets, daily range): BP systolic 110–169; BP diastolic 53–96
--- NOTE | 2018-10-16 06:29 | NUR ---
RN CLOSING NOTES, PATIENT IS IN BED , ON BIPAP OVERNIGHT, CONTROLLED AFIB ON TELE MONITOR , SAFETY MEASURES IN PLACE, BED ALARM IS ON, CALL LIGHT W/I REACH. ALL NEED ANTICIPATED AND MET. WILL ENDORSE TO AM NURSE FOR FACUNDO.
--- NOTE | 2018-10-16 07:10 | NUR ---
RN NOTES PATIENT RECEIVED SLEEPING IN BED COMFORTABLY, EASILY AROUSABLE DURING CARE. DANISH SPEAKING ABLE TO MAKE NEEDS KNOWN. CONTINUED ON BIPAP TREATMENT OVERNIGHT TOLERATED WELL, RESPIRATIONS EVEN AND UNLABORED, IN NO APPARENT PAIN OR DISCOMFORT. IV ACCESS TO RIGHT HAND PATENT AND INTACT NO REDNESS OR INFILTRATION NOTED. KEPT CLEAN DRY AND COMFORTABLE WILL CONTINUE TO MONITOR
--- NOTE | 2018-10-16 07:30 | NUR ---
RN NOTES BIPAP REMOVED AT THIS TIME ONLY OVERNIGHT ORDER, PLACED ON 2LPM NASAL CANNULA TOLERATING WELL WILL CONTINUE TO MONITOR
[2018-10-16] MEDS: BLOOD SUGAR DIAGNOSTIC 1 EACH STRIP IN SCH ×4 (07:59→21:46)
[2018-10-16] MEDS: METOPROLOL TARTRATE 25 MG TABLET PO SCH ×3 (08:24→16:44)
[2018-10-16] MEDS: methylPREDNISolone SOD SUCC 125 MG/2ML VIAL IV SCH (08:24)
[2018-10-16] MEDS: LEVOTHYROXINE SODIUM 50 MCG TABLET PO SCH (08:24)
[2018-10-16] MEDS: POLYVINYL ALCOHOL 15 ML BOTTLE EACHEYE SCH (08:25)
[2018-10-16] MEDS: INSULIN REGULAR, HUMAN 100 UNIT/ML 3 ML VIAL SQ PRN ×3 (08:42→16:46)
--- NOTE | 2018-10-16 09:30 | NUR ---
RN NOTES SEEN AND EXAMINED BY DR. VILLASEÑOR AND DR GILL WITH ORDERS FOR OKAY TO TRANSFER TO TELE WILL, WILL MAKE SALES MARKETING MANAGER AWARE
--- NOTE | 2018-10-16 14:25 | NUR ---
RN NOTES PATIENT WITH ORDERS TO TRANSFER TO TELE PT TO GO TO RM 320-1 WILL GIVE REPORT AND TRANSFER PT ORDERED
--- NOTE | 2018-10-16 14:50 | NUR ---
RN NOTES TRANSFERRED PT TO TELE RM 320-1 VIA WHEELCHAIR AND ACLS PROTOCOL. PATIENT AWAKE ALERT AND ABLE TO MAKE NEEDS KNOWN. RESPIRATIONS EVEN AND UNLABORED, NO ACUTE DISTRESS NOTED, DENIES ANY PAIN OR DISCOMFORT AT THIS TIME. IV ACCESS TO RIGHT HAND PATENT AND INTACT NO REDNESS OR INFILTRATION NOTED. PATIENT ASSISTED TO BED, KEPT CLEAN DRY AND COMFORTABLE, ORIENTED TO ROOM, FAMILY AT BEDSIDE, REPORT GIVEN TO RECEIVING RN FOR CONTINUITY OF CARE
--- NOTE | 2018-10-16 15:00 | NUR ---
ESTERS AND EMULSIFIERS SUPERVISOR RECEIVING TRANSFER NOTE PT ARRIVED VIA WHEELCHAIR IN STABLE CONDITION ACCOMPANIED BY ICU NURSE AND FAMILY. PT IS A/O X3, AFEBRILE, FARSI SPEAKING. RESPIRATIONS ARE EVEN AND UNLABORED, NOT IN ANY ACUTE DISTRESS NOTED. PT IS CURRENTLY ON 02 @2L/MIN SATURATING AT 100%. PUPILS ARE REACTIVE TO LIGHT, BILATERAL HAND ELECTRONIC PUBLISHER ARE STRONG AND EQUAL. DENIES ANY PAIN, N/V, SOB AT THIS TIME. IV SITE TO RIGHT HAND 20G INTACT, NO INFILTRATION NOTED. DRESSING KEPT CLEAN AND DRY. SAFETY MEASURES ARE IN PLACE. BED IS IN ITS LOWEST AND LOCKED POSITION. INSTRUCTED PT TO USE CALL LIGHT WHEN ASSISTANCE IS NEEDED, CALL LIGHT IS LEFT WITHIN REACH. WILL MONITOR THROUGHOUT SHIFT FOR CONTINUITY OF CARE.
[2018-10-16] MEDS ORDERED: WARFARIN SODIUM 1 MG TABLET PO ONE (17:00)
[2018-10-16] MEDS ORDERED: WARFARIN SODIUM 1 MG TABLET PO SCH ×2 (17:00)
--- NOTE | 2018-10-16 18:41 | NUR ---
SNUFF GRINDER AND SCREENER CLOSING NOTES NEEDS MET AND RENDERED. PT IS A/O X4, AFEBRILE. RESPIRATIONS ARE EVEN AND UNLABORED, NOT IN ANY ACUTE DISTRESS NOTED. PT DENIES ANY PAIN AT THIS TIME, NO SOB, N/V. IV SITE TO R HAND INTACT, NO INFILTRATION NOTED. DRESSING KEPT CLEAN AND DRY. SAFETY MEASURES ARE IN PLACE. REMINDED PT TO USE CALL LIGHT WHEN ASSISTANCE IS NEEDED, CALL LIGHT IS LEFT WITHIN REACH. WILL ENDORSE TO NEXT SHIFT FOR CONTINUITY OF CARE.
--- NOTE | 2018-10-16 20:00 | NUR ---
RN OPENING NOTES: RECEIVED PATIENT IN BED, AWAKE, WITH SALINE LOCK ON HER RIGHT FOREARM G#20, NO SIGNS OF REDNESS OR PHLEBITIS ON AREA. PATIENT REMINDED OF HER FLUID RESTRICTION OF 1L PER DAY. NO COMPLAINS OF PAIN OR DISCOMFORT THIS TIME. PLACED CALL LIGHT WITHIN PATIENT'S REACH. WILL MONITOR PATIENT.
[2018-10-16] MEDS: *INSULIN REGULAR(HUMULIN R)HUM 100 UNIT/ML VIAL SQ PRN (22:01)
[2018-10-16] MEDS: methylPREDNISolone SOD SUCC 40 MG/ML VIAL IV SCH (22:02)
--- NOTE | 2018-10-17 00:37 | NUR ---
RT NOTE PATIENT REMOVED CPAP MASK. PATIENT IS REFUSING TO KEEP CPAP MASK ON. PRIMARY NURSE, LUBNA WINTERS, NOTIFIED. PATIENT PLACED ON 2L NASAL CANNULA. SPO2 95% HR 71. WILL CONTINUE TO MONITOR PATIENT. Addendum: 10/17/18 at 0039 by MICHELLE MONTOYA RT Amended: Links added.
[2018-10-17 00:39] VITALS: BP 129/77
[2018-10-17 04:00] VITALS: BP 123/64
[2018-10-17 06:22] LABS: BASOPHILS % (AUTO) 0.2 % (0.0-2.0); HEMATOCRIT 43 % (33-45); LYMPHOCYTES # (AUTO) 0.6 /CMM (0.8-4.8); LYMPHOCYTES % (AUTO) 6.1 % (20.0-44.0); MEAN CORPUSCULAR HGB CONC 33 g/dl (31.0-36.0); MEAN CORPUSCULAR VOLUME 93 fL (82-100); MONOCYTES # (AUTO) 0.4 /CMM (0.1-1.30); MONOCYTES % (AUTO) 4.4 % (2.0-12.0); NEUTROPHILS # (AUTO) 8.4 /CMM (1.8-8.9); NEUTROPHILS % (AUTO) 89.3 % (43.0-81.0); PLATELET COUNT (AUTO) 133 /CMM (150-450); RED BLOOD CELL COUNT(AUTO) 4.64 MIL/uL (4.0-5.2); WHITE BLOOD COUNT (AUTO) 9.4 K/uL (4.3-11.0)
[2018-10-17] MEDS: BLOOD SUGAR DIAGNOSTIC 1 EACH STRIP IN SCH ×4 (06:27→21:58)
[2018-10-17 06:29] LABS: ALANINE AMINOTRANSFERASE 13 U/L (12-78); ALKALINE PHOSPHATASE 55 U/L (46-116); ASPARTATE AMINOTRANSFERASE 20 U/L (15-37); BILIRUBIN,TOTAL 1.6 mg/dL (0.2-1.0); CALCIUM, SERUM 9.5 mg/dL (8.5-10.1); CHLORIDE 99 mmol/L (98-107); CREATININE 1.5 mg/dL (0.6-1.3); GLUCOSE 158 mg/dL (74-106); MAGNESIUM 2.2 mg/dL (1.8-2.4); PHOSPHORUS 2.6 mg/dL (2.5-4.9); POTASSIUM 4.8 mmol/L (3.5-5.1); SODIUM SERUM 142 mmol/L (136-145); TOTAL PROTEIN, SERUM 7.6 g/dL (6.4-8.2); UREA NITROGEN, BLOOD 66 mg/dL (7-18)
[2018-10-17] MEDS: LEVOTHYROXINE SODIUM 50 MCG TABLET PO SCH (06:29)
[2018-10-17 06:34] LABS: CARBON DIOXIDE 41 mmol/L (21-32)
--- NOTE | 2018-10-17 07:30 | NUR ---
RN CLOSING NOTES: PATIENT IN BED, INTERMITTENTLY ASLEEP, NO COMPLAINS OF PAIN OR DISCOMFORT THIS TIME. NO FACIAL GRIMACE NOTED THIS TIME. ACCUCHECK DONE. REGULAR INSULIN GIVEN ORDERED.SALINE LOCK ON RIGHT HAND IN PLACE.PATIENT WEIGHED EARLY AM- 117LBS. COCO SHINE INFORMED OF THE CO2 LEVEL DONE AT EARLY AM- 41. WAITING FOR CALLBACK. WILL ENDORSE TO DAY SHIFT NURSE.
[2018-10-17] MEDS: INSULIN REGULAR, HUMAN 100 UNIT/ML 3 ML VIAL SQ PRN ×4 (07:33→21:58)
--- NOTE | 2018-10-17 07:37 | NUR ---
STORM SASH MAKER OPENING NOTES RECEIVED PT LAYING IN BED WITH HOB ELEVATED. PT IS A/O X3, AFEBRILE. RESPIRATIONS ARE EVEN AND UNLABORED, NOT IN ANY ACUTE DISTRESS NOTED. DENIES ANY PAIN, SOB, N/V. IV SITE TO R HAND INTACT, NO INFILTRATION NOTED. DRESSING KEPT CLEAN AND DRY. SAFETY MEASURES ARE IN PLACE. INSTRUCTED PT TO USE CALL LIGHT WHEN ASSISTANCE IS NEEDED, CALL LIGHT IS LEFT WITHIN REACH. WILL MONITOR THROUGHOUT SHIFT FOR CONTINUITY OF CARE.
[2018-10-17 08:00] VITALS: BP 138/77
[2018-10-17 08:12] VITALS: BP 138/77
[2018-10-17] MEDS: METOPROLOL TARTRATE 25 MG TABLET PO SCH ×3 (08:52→16:44)
[2018-10-17] MEDS: methylPREDNISolone SOD SUCC 40 MG/ML VIAL IV SCH (08:52)
--- NOTE | 2018-10-17 08:57 | NUR ---
MS RN NOTES-- CALLED PHARMACY RE: DIAMOX AND ARTIFICIAL TEARS AND STATED THEY WILL BRING IT UP.
[2018-10-17] MEDS ORDERED: acetaZOLAMIDE SODIUM 500 MG/VIAL VIAL IV ONE (09:00)
[2018-10-17] MEDS: POLYVINYL ALCOHOL 15 ML BOTTLE EACHEYE SCH (11:06)
--- NOTE | 2018-10-17 11:59 | NUR ---
MS RN NOTES-- RELAYED INR RESULTS TO DR. RODRIGUEZ W/ ORDERS TO CONTINUE SAME DOSE COUMADIN 3.5MG AND REPEAT INR TOMORROW. READ BACK AND VERIFIED. NOTED AND CARRIED OUT. NO S/SX OF BLEEDING AT THIS TIME. WILL CONTINUE TO MONITOR.
--- NOTE | 2018-10-17 13:32 | NUR ---
MS RN NOTES-- PT STATED SHE DIDNT WANT METOPROLOL D/T HER BP 111/61. NO S/SX OF HYPO/HYPERTENSION NOTED. WILL MONITOR.
[2018-10-17 16:00] VITALS: BP 138/79
[2018-10-17] MEDS: WARFARIN SODIUM 1 MG TABLET PO SCH (16:48)
--- NOTE | 2018-10-17 19:20 | NUR ---
RN MS OPENING NOTES RECEIVED PT IN BED, AWAKE ALERT ORIENTEDX4,VERY SLEEPY, BREATHING EVEN AND UNLABORED ON O2 2L NC. NO COMPLAINT OF PAIN OR DISCOMFORT AT THIS TIME. IV ACCESS ON THE R HAND 30G SL PATENT AND FLUSHING. BED IN LOWEST LOCKED POSITION CALL LIGHT WITHIN REACH AT ALL TIMES, WILL CONTINUE TO MONITOR
[2018-10-17 20:00] VITALS: BP 112/64
[2018-10-18 00:55] VITALS: BP 112/64
--- NOTE | 2018-10-18 06:28 | NUR ---
RN MS CLOSING NOTES PT REMAINS IN BED, AWAKE ALERT ORIENTEDX4, BREATHING EVEN AND UNLABORED ON O2 2L NC. EPISODE OF SOB DURING THE NIGHT BUT CORRECTED WITH BIPAP. NO COMPLAINT OF PAIN OR DISCOMFORT AT THIS TIME. IV ACCESS ON THE R HAND 30G SL PATENT AND FLUSHING. BED IN LOWEST LOCKED POSITION CALL LIGHT WITHIN REACH AT ALL TIMES, WILL ENDORSE TO DAY NURSE FOR FACUNDO
--- NOTE | 2018-10-18 07:25 | NUR ---
MS RN OPENING NOTES RECEIVED PT LAYING IN BED, RESTING COMFORTABLY WITH HOB ELEVATED. PT IS A/O X3, AFEBRILE. RESPIRATIONS ARE EVEN AND UNLABORED, NOT IN ANY ACUTE DISTRESS NOTED. DENIES ANY PAIN, SOB, N/V. IV SITE TO R HAND INTACT, NO INFILTRATION NOTED. DRESSING KEPT CLEAN AND DRY. SAFETY MEASURES ARE IN PLACE. INSTRUCTED PT TO USE CALL LIGHT WHEN ASSISTANCE IS NEEDED, CALL LIGHT IS LEFT WITHIN REACH. WILL MONITOR THROUGHOUT SHIFT FOR CONTINUITY OF CARE.
[2018-10-18] MEDS: BLOOD SUGAR DIAGNOSTIC 1 EACH STRIP IN SCH ×3 (07:53→17:11)
[2018-10-18 08:00] VITALS: BP 122/60
[2018-10-18 08:15] LABS: BASOPHILS % (AUTO) 0.1 % (0.0-2.0); EOSINOPHILS % (AUTO) 0.6 % (0.0-6.0); HEMATOCRIT 46 % (33-45); HEMOGLOBIN 14.9 g/dL (11.5-14.8); LYMPHOCYTES # (AUTO) 1.7 /CMM (0.8-4.8); LYMPHOCYTES % (AUTO) 16.3 % (20.0-44.0); MEAN CORPUSCULAR HGB CONC 32 g/dl (31.0-36.0); MEAN CORPUSCULAR VOLUME 95 fL (82-100); MONOCYTES # (AUTO) 1.2 /CMM (0.1-1.30); MONOCYTES % (AUTO) 11.2 % (2.0-12.0); NEUTROPHILS # (AUTO) 7.7 /CMM (1.8-8.9); NEUTROPHILS % (AUTO) 71.8 % (43.0-81.0); PLATELET COUNT (AUTO) 142 /CMM (150-450); WHITE BLOOD COUNT (AUTO) 10.7 K/uL (4.3-11.0)
[2018-10-18] MEDS: LEVOTHYROXINE SODIUM 50 MCG TABLET PO SCH (08:22)
[2018-10-18] MEDS: METOPROLOL TARTRATE 25 MG TABLET PO SCH ×3 (08:23→17:12)
[2018-10-18] MEDS: POLYVINYL ALCOHOL 15 ML BOTTLE EACHEYE SCH (08:24)
[2018-10-18 08:38] LABS: ALANINE AMINOTRANSFERASE 16 U/L (12-78); ALBUMIN 2.9 g/dL (3.4-5.0); ALKALINE PHOSPHATASE 52 U/L (46-116); ASPARTATE AMINOTRANSFERASE 18 U/L (15-37); BILIRUBIN,TOTAL 1.4 mg/dL (0.2-1.0); CALCIUM, SERUM 9.4 mg/dL (8.5-10.1); CARBON DIOXIDE 38 mmol/L (21-32); CHLORIDE 104 mmol/L (98-107); CREATININE 1.5 mg/dL (0.6-1.3); GLUCOSE 95 mg/dL (74-106); PHOSPHORUS 2.9 mg/dL (2.5-4.9); POTASSIUM 4.2 mmol/L (3.5-5.1); SODIUM SERUM 144 mmol/L (136-145); TOTAL PROTEIN, SERUM 7.4 g/dL (6.4-8.2); UREA NITROGEN, BLOOD 70 mg/dL (7-18)
[2018-10-18] MEDS ORDERED: methylPREDNISolone SOD SUCC 40 MG/ML VIAL IV SCH (09:00)
--- NOTE | 2018-10-18 10:01 | NUR ---
MS RN NOTES-- PT SEEN AND EXAMINED BY DR. ZHU. RELAPED INR RESULTS W/ ORDERS TO CONTINUE SAME DOSE COUMADIN 3.5MG.
[2018-10-18] MEDS: INSULIN REGULAR, HUMAN 100 UNIT/ML 3 ML VIAL SQ PRN ×2 (11:25→17:15)
[2018-10-18] MEDS ORDERED: FUROSEMIDE 20 MG TABLET PO SCH (12:30)
--- NOTE | 2018-10-18 14:01 | NUR ---
MS RN NOTES-- PT AMBULATED AROUND THE UNIT WITH 1 STAFF STANDBY ASSIST USING FWW.
[2018-10-18] MEDS ORDERED: WARF-68 PO (14:31)
[2018-10-18] MEDS ORDERED: FURO20TA4 PO (14:31)
[2018-10-18] MEDS ORDERED: PRED20TA PO (14:38)
[2018-10-18 16:00] VITALS: BP 120/61
[2018-10-18] MEDS: WARFARIN SODIUM 1 MG TABLET PO SCH (17:14)
--- NOTE | 2018-10-18 19:35 | NUR ---
MS RN CLOSING NOTES NEEDS MET AND RENDERED. PT IS A/O X4, AFEBRILE. RESPIRATIONS ARE EVEN AND UNLABORED, NOT IN ANY ACUTE DISTRESS NOTED. PT DENIES ANY PAIN AT THIS TIME, NO SOB, N/V. IV SITE TO R HAND INTACT, NO INFILTRATION NOTED. DRESSING KEPT CLEAN AND DRY. SAFETY MEASURES ARE IN PLACE. REMINDED PT TO USE CALL LIGHT WHEN ASSISTANCE IS NEEDED, CALL LIGHT IS LEFT WITHIN REACH. ENDORSED TO NEXT SHIFT FOR CONTINUITY OF CARE.
--- NOTE | 2018-10-18 19:40 | NUR ---
RN NOTES RECEIVED PATIENT AWAKE, HOB ELEVATED, ON 4LPM O2 VIA NC AND TOLERATED WELL. PATIENT DENIES ANY PAIN AND DISCOMFORT. IV ACCESS ON RIGHT HAND PATENT AND INTACT. PATIENT IS FOR DISCHARGE TO [place] PER REPORT AND AWAITING FOR TRANSPORTATION. KEPT PATIENT COMFORTABLE WITH CALL LIGHT WITHIN REACH.
--- NOTE | 2018-10-18 20:00 | NUR ---
RN NOTES AMBULANCE CAME TO CANDY CATCHER THE PATIENT, VITAL SIGNS STABLE . ON 4LPM VIA NC SATING 96%. PATIENT DENIES ANY PAIN AND DISCOMFORT. KEPT IV ACCESS IN RIGHT HAND INTACT PER RN IN [place]. DISCHARGE PATIENT IN STABLE CONDITION. SON ACCOMPANIED THE PATIENT WITH ALL BELONGINGS SENT .
[2018-10-18 20:16] VITALS: BP 105/54
== END 2018-10-18 20:10 | disposition short-term general hospital (02) | DRG 291 ==
LOC: ER 11:01 → TELE1 12:58 → ICU 10-13 13:09 → TELE 10-16 14:55 → MED 10-17 10:36
PROVIDERS: ADMIT Internal Medicine; ATTEND Student in an Organized Health Care Education/Training Program
PROC: 5A09457 Assistance with Respiratory Ventilation, 24-96 Consecutive Hours, Continuous Positive Airway Pressure (ICD-10-PCS; principal; 2018-10-13)
DX: I13.0 Hypertensive heart and chronic kidney disease with heart failure and stage 1 through stage 4 chronic kidney disease, or unspecified chronic kidney disease (principal); J96.01 Acute respiratory failure with hypoxia; I50.33 Acute on chronic diastolic (congestive) heart failure; N17.0 Acute kidney failure with tubular necrosis; J96.22 Acute and chronic respiratory failure with hypercapnia; E87.1 Hypo-osmolality and hyponatremia; G93.40 Encephalopathy, unspecified; K21.9 Gastro-esophageal reflux disease without esophagitis; N18.9 Chronic kidney disease, unspecified; E78.5 Hyperlipidemia, unspecified; I48.2 Chronic atrial fibrillation; J44.9 Chronic obstructive pulmonary disease, unspecified; E03.9 Hypothyroidism, unspecified; Z95.2 Presence of prosthetic heart valve; Z87.891 Personal history of nicotine dependence; Z95.1 Presence of aortocoronary bypass graft; Z87.01 Personal history of pneumonia (recurrent); Z99.81 Dependence on supplemental oxygen; M19.90 Unspecified osteoarthritis, unspecified site; E80.6 Other disorders of bilirubin metabolism; I27.20 Pulmonary hypertension, unspecified; J84.10 Pulmonary fibrosis, unspecified
CPT/HCPCS: 36415; 36600; 70450-TC; 71045-TC; 80048-TC; 80053-TC; 80061-TC; 80076-TC; 82803-TC; 82962-TC; 83735-TC; 83880; 84100-TC; 84443-TC; 84484-TC; 85025-TC; 85610-TC; 85730-TC; 87081-TC; 93307-TC; 94799-TC; G0378; J1120; J1815; J1940; J2405; J2920; J2930; J7030